=== PATIENT | male | born 1940 | race Caucasian/White ===

== ENCOUNTER 2020-08-13 10:43 | Outpatient (REF) | payer MEDICARE, SELFPAY ==
[2020-08-13 13:56] LABS: MANUAL DIFF FLAG NO
[2020-08-13 14:02] LABS: Basophils Absolute Auto 0.1 X10*3/uL (0.0-0.2); Basophils Percent Auto 1.2 % (0-2); Eosinophils Absolute Auto 0.4 X10*3/uL (0.0-0.4); Eosinophils Percent Auto 3.5 % (0-4); Hematocrit 41.3 % (42-52); Hemoglobin 13.2 g/dl (14.0-18.0); Imm Gran Abs Auto 0.03 X10*3/uL (0.00-0.03); Imm Gran Pct Auto 0.3 % (0.0-0.4); Lymphocytes Absolute Auto 1.4 X10*3/uL (1.2-4.9); Lymphocytes Percent Auto 13.6 % (20-40); Mean Corpuscular Volume 87.5 fL (80-98); Mean Platelet Volume 10.7 fL (9.4-12.4); Monocytes Absolute Auto 0.7 X10*3/uL (0.1-1.2); Monocytes Percent Auto 6.7 % (2-11); Neutrophils Absolute Auto 7.9 X10*3/uL (2.0-8.3); Neutrophils Percent Auto 74.7 % (45-73); Platelet Count 429 X10*3/uL (160-400); Red Blood Count 4.72 X10*6/uL (4.60-5.80); Red Cell Distribution Width 14.2 % (11.0-16.0); White Blood Count 10.5 X10*3/uL (4.8-10.8)
[2020-08-13 14:05] LABS: Glucose Urine UA NEG (NEG); Leukocyte Esterase Urine NEG (NEG); Nitrite Urine NEG (NEG); Specific Gravity - Urine 1.015 (1.005-1.025); Urine Blood NEG (NEG); Urine Ketones NEG (NEG); Urine Protein 1+ MG/DL (NEG-TRACE)
[2020-08-13 14:09] LABS: Appearance Urine CLEAR; Color Urine YELLOW
[2020-08-13 14:23] LABS: Granular Casts Urine 0-2 /LPF; Mucus Urine 2+ /LPF; RBC Urine 0 /HPF (0); Squamous Epithelial Cell Urine 1+ /LPF; WBC Urine 0 /HPF (0-4)
[2020-08-13 14:24] LABS: Calcium Oxalate Crystals Urine 1+ /LPF
[2020-08-13 15:05] LABS: Erythrocyte Sedimentation Rate 18 MM/HR (0-15)
[2020-08-13 15:11] LABS: Alanine Aminotransferase 10 U/L (0-40); Albumin Level 4.1 g/dL (3.5-5.0); Alkaline Phosphatase 65 U/L (39-117); Amylase 33 U/L (28-100); Anion Gap 13 (12-20); Aspartate Amino Transferase 14 U/L (5-37); Bilirubin Direct 0.3 mg/dL (0.0-0.5); Bilirubin Total 0.7 mg/dL (0.0-1.0); Blood Urea Nitrogen 9 mg/dL (9-16); C Reactive Protein 0.37 mg/dL (< or = 0.50); Calcium 10.4 mg/dL (8.4-10.2); Carbon Dioxide 28 mmol/L (22-29); Chloride 101 mmol/L (96-108); Estimated Glomerular Filt Rate 48; Glucose Random 107 mg/dL (60-115); Lipase 11 U/L (8-78); Potassium 4.3 mmol/l (3.3-5.1); Sodium 138 mmol/L (135-145); Total Protein 6.6 g/dL (6.5-8.0)
== END 2020-08-13 10:44 | disposition home or self-care (01) ==
LOC: HO.HMGCLDS 10:43
PROVIDERS: PCP Family Medicine; Visit Provider Internal Medicine
DX: R10.9 Unspecified abdominal pain (principal); R11.0 Nausea
CPT/HCPCS: 36415; 80053; 80076; 81001; 81003; 82150; 83690; 85025; 85652; 86140; 87086

== ENCOUNTER 2020-08-15 13:05 | Outpatient (REF) | payer MEDICARE, SELFPAY ==
--- NOTE | 2020-08-15 13:12 | CT_ITS ---
EXAMINATION: CT ABDOMEN AND PELVIS WITH CONTRAST CLINICAL INFORMATION: History of Crohn's disease. Generalized abdominal and epigastric pain. COMPARISON: Previous CT of the abdomen and pelvis August 2019 TECHNIQUE: Multidetector volumetric images were obtained from the superior aspect of the liver through the pubic symphysis following administration 85 mL of Omnipaque 350 intravenous contrast. Sagittal and coronal reformatted images were obtained on the technologist's workstation. Oral contrast: Yes This CT examination was performed using dose optimization techniques as appropriate, variously including the following: *Automated exposure control *Adjustment of mA and/or kV according to patient size (this includes techniques or standardized protocols for targeted exams where dose is matched to indication/reason for exam; i.e. extremities or head) *Use of iterative reconstruction technique DLP: 463 mGy-cm FINDINGS: LUNG BASES: There is a 3 mm left lower lobe nodule that is stable. LIVER, GALLBLADDER, AND BILIARY TREE: The liver is normal in size, shape, and attenuation. No focal hepatic lesion or biliary ductal dilatation is present. The gallbladder has been removed. PANCREAS: Unremarkable. SPLEEN: Unremarkable. ADRENAL GLANDS: Unremarkable. KIDNEYS AND URETERS: The kidneys are normal in size, shape, and attenuation. No hydronephrosis, hydroureter, or calculi seen. No perinephric stranding. BLADDER: Bladder is not optimally distended. The prostate gland is enlarged. Into the base of the bladder. GASTROINTESTINAL TRACT: The small and large bowel are unremarkable. There may be mild wall thickening of the rectum. The appendix is unremarkable. The stomach is unremarkable. ABDOMINAL WALL: There is evidence of atherosclerotic disease. There is calcified plaque seen at the origin of the celiac axis and SMA. LYMPH NODES: Normal. VASCULAR: Unremarkable. PELVIC VISCERA: The prostate gland is enlarged and measures 4.3 x 4.9 cm in AP and transverse dimension. OSSEOUS STRUCTURES: There are degenerative changes at the hip joints. There are mild degenerative changes of the spine. IMPRESSION: Question mild rectal wall thickening. Enlarged prostate gland. Stable small left lower lobe pulmonary nodule.
[2020-08-15] MEDS: iohexoL 350 MG/ML 100 ML INFUS..BTL IV (15:21)
[2020-08-15] MEDS: Barium Sulfate Oral (Mocha) 450 ML ORAL.SUSP 900 ML PO (15:23)
== END 2020-08-15 13:06 | disposition home or self-care (01) ==
LOC: HO.CT 13:05
PROVIDERS: PCP Family Medicine; Visit Provider Internal Medicine
DX: K50.80 Crohn's disease of both small and large intestine without complications (principal); R10.13 Epigastric pain; R10.33 Periumbilical pain
CPT/HCPCS: 74177

== ENCOUNTER → 2020-08-25 11:58 | Outpatient (BNVA) | payer MEDICARE, SELFPAY | PROVIDERS: PCP Family Medicine; Referring Provider Family Medicine; Visit Provider Internal Medicine | DX: I48.0 Paroxysmal atrial fibrillation (principal); I25.10 Atherosclerotic heart disease of native coronary artery without angina pectoris; I10 Essential (primary) hypertension; E78.2 Mixed hyperlipidemia; Z95.1 Presence of aortocoronary bypass graft; Z79.01 Long term (current) use of anticoagulants | CPT/HCPCS: 93005; 99214 ==

== ENCOUNTER 2020-10-10 11:09 | Outpatient (REF) | payer SELFPAY | END 2020-10-10 11:10 | disposition home or self-care (01) | LOC: HO.HAP 11:09 | PROVIDERS: Visit Provider Family Medicine | DX: Z13.89 Encounter for screening for other disorder (principal) | CPT/HCPCS: 92700 ==

== ENCOUNTER → 2020-10-21 10:51 | Outpatient (REF) | payer MEDICARE, SELFPAY ==
--- NOTE | 2020-10-21 10:54 | CA_ITS ---
Transthoracic Echocardiogram Patient (Last, First, Middle): Cirilo Watson C Gender: Male Date of : 1940 Age: 80 Procedure Date: 10/21/2020 Procedure Type: Transthoracic Echocardiogram Location: OP Height: 172.72 cm Weight: 85.28 kg BSA: 1.99 m2 Heart Rate: bpm BP: 146 / 80 mmHg Semiconductor Equipment Technician: Regis MD: Jerry Barboza MD Principal Data Architect: Volodymyr Jimenez MD Symptoms: I48.0 - Paroxysmal atrial fibrillation Study Quality: Good ECG Rhythm: Atrial Fibrillation Conclusions: - 1. Normal LV systolic function 2. Borderline left atrial enlargement 3. Moderate mitral annular calcification with normal cardiac valvular Doppler 4. Normal RV systolic pressure 5. No pericardial effusion Findings Procedure Information Contrast agent, definity, is being given per protocol without apparent complications. Left Ventricle Normal left ventricular size, thickness, and systolic function. The visually estimated ejection fraction is between 60-65%. Diastolic function is indeterminate on the basis of available data. Right Ventricle Normal right ventricular cavity size and systolic function. Atria The left atrium is likely dilated. There is lipomatous hypertrophy of the interatrial septum. There is no evidence of interatrial shunt. The right atrium is normal in size. Aortic Valve There is mild thickening of the aortic valve. There is no aortic valve stenosis. There is no aortic valve regurgitation. Mitral Valve There is mild anterior and posterior mitral leaflet thickening. There is moderate mitral annular calcification. There is trace mitral valve regurgitation. There is no mitral valve stenosis. Pulmonic Valve The pulmonic valve was not well visualized. Tricuspid Valve Likely normal tricuspid valve structure and function. There is trace tricuspid valve regurgitation. The right ventricular systolic pressure is normal. The right ventricular systolic pressure is 22 mmHg. Normal right atrial pressure. There is no evidence of pulmonary hypertension. Great Vessels All visible segments of the aorta are normal in size. The pulmonary artery was not well visualized. Venous The inferior vena cava is normal in size and collapses greater than 50% with inspiration. Pericardium/Pleural There is no evidence of pericardial effusion. Prior Study Comparison No significant change compared to prior study dated: 06/06/2019. Measurements 2D Linear Measurements RVIDd: 3.32 RVIDd Index: 1.67 IVSd: 0.90 0.6-0.9/0.6-1.0 cm LVIDd: 4.82 3.9-5.3/4.2-5.9 cm LVIDd Index: 2.42 2.4-3.2/2.2-3.1 cm/m2 LVIDs: 3.58 2.0-3.6 cm LVPWd: 1.25 0.7-1.1 cm Ao Root: 3.10 2.1-3.5 cm LA Diam: 4.20 2.7-3.8/3.0-4.0 cm LAIDs Index: 2.11 1.5-2.3 cm/m2 LV Mass: 235.69 67-162/88-224 g LV Mass Index: 118.44 43-95/49-115 g/m2 LVOT Diam: 2.30 3.0+(-)1.3 cm 2D Systolic Function EF 4C: 66.40 >55% EF 2C: 65.90 >55% EF BiP: 66.00 >55% Aortic Valve AoV Pk Bhavesh: 1.38 AoV Mn Bhavesh: 0.89 AoV VTI: 0.26 AoV Pk Grad: 8.00 Aov Mn Grad: 4.00 ZIGGY Cont.VTI: 3.37 LVOT LVOT Pk Bhavesh: 1.01 LVOT Mn Bhavesh: 0.70 LVOT VTI: 0.21 LVOT Pk Grad: 4.00 LVOT Mn Grad: 2.00 LVOT Diam: 2.30 LVOT Area: 4.15 Tricuspid Valve TR Pk Bhavesh: 2.19 TR Pk Grad: 19.00 RA Press: 3.00 RVSP: 22.00 Great Vessels Aorta Ao Root-2D: 3.10 2.0-3.7 cm Ao Asc: 3.30 2.1-3.4 cm Ao Arch: 3.40 Updated in Other Vendor System with Status of Final Volodymyr Jimenez MD electronically signed on 10/23/2020 9:19:18 AM with status of Final
--- NOTE | 2020-10-21 10:54 | ECG_ITS ---
Hook-up date: 2020-10-21 12:08:00 Duration: 23:54:00 Test Indications: I48.0 - Paroxysmal atrial fibri Medications: PAF 66835 QRS complexes 156 Ventricular ectopics which represent <1 % of total QRS comp. * Supraventricular ectopics which represent % of total QRS comp. * Paced QRS complexs which represent % of total QRS comp. VENTRICULAR ECTOPY 154 Isolated 0 Bigeminal Cycles 1 Couplets 0 Runs 0 Beats in Runs * Beats LONGEST at * BPM at :: -- * Beats FASTEST at * BPM at :: -- SUPRAVENTRICULAR ECTOPY * Isolated * Couplets * Runs * Beats in Runs * Beats LONGEST at * BPM at :: -- * Beats FASTEST at * BPM at :: -- HEART RATES 43 MIN at 23:32:21 2020-10-21 69 AVG 141 MAX at 13:30:05 2020-10-21 LONGEST RR 2.4720 secs at 00:56:45 2020-10-22 S-T LEVELS Channel 1 - 128 mm at 12:08:00 2020-10-21 - 128 mm at 12:08:00 2020-10-21 Channel 2 - 128 mm at 12:08:00 2020-10-21 - 128 mm at 12:08:00 2020-10-21 Channel 3 - 128 mm at 03:12:71 -- - 128 mm at 03:12:71 Underlying rhythm is atrial fibrillation; Average ventricular rate 69/min; range 43-141/min; About 2% of the rates >100/min; 18% <60/min; Rare PVCs; Patient did not return diary Referred By: Rohith Uribe Overread By: ROHITH URIBE
== END ==
LOC: HO.CARD 10:51
PROVIDERS: Visit Provider Internal Medicine
DX: I48.0 Paroxysmal atrial fibrillation (principal)
CPT/HCPCS: 93225; 93226; 93306; Q9957

== ENCOUNTER → 2020-11-13 10:47 | Outpatient (BNVA) | payer MEDICARE, SELFPAY | PROVIDERS: PCP Family Medicine; Visit Provider Internal Medicine | DX: I48.0 Paroxysmal atrial fibrillation (principal); I25.10 Atherosclerotic heart disease of native coronary artery without angina pectoris; I10 Essential (primary) hypertension; E78.2 Mixed hyperlipidemia; Z95.1 Presence of aortocoronary bypass graft | CPT/HCPCS: 99212 ==

== ENCOUNTER 2021-04-06 12:52 | Outpatient (REF) | payer SELFPAY ==
--- NOTE | 2021-04-06 13:11 | MHC.AU.P13 ---
Hearing Instrument Maintenance 04/06/2021 Right Ear: Smoke Jumper Supervisor: Phonak Model: Bolero B 50-SP Serial Number: [id number] Repair Warranty: 01/15/2023 Service Plan: Repair and L&D Battery Size: 13 Color: Silver Carter Tubing: Tube Lock Type of Mold: Microsonic Skeleton Type of Wax Guard: Dispensed By: [facility] Date of Fittin11/06/2019 Left Ear: Smoke Jumper Supervisor: Phonak Model: Bolero B 50-SP Serial Number: [id number] Repair Warranty: 01/15/2023 Service Plan: Repair and L&D Battery Size: 13 Color: Silver Carter Tubing: Tube Lock Type of Mold: Microsonic Skeleton Dispensed By: [facility] Date of Fittin11/06/2019 Follow-Up Summary: SUNG Maint - Hearing aids cleaned and tubings changed - both amplifying clearly. Recommendations: Recommendations: Hearing instrument follow-up or maintenance as needed. Signature: Provider: JERRY Pierson-
== END 2021-04-06 12:53 | disposition home or self-care (01) ==
LOC: HO.HAP 12:52
PROVIDERS: Visit Provider Family Medicine
DX: Z13.89 Encounter for screening for other disorder (principal)

== ENCOUNTER 2021-04-18 19:39 | Emergency (ER) | payer MEDICARE, SELFPAY ==
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
--- NOTE | ~2021-04-18 | XR_ITS ---
EXAMINATION: XR TIBIA AND FIBULA, LEFT CLINICAL INFORMATION: Trauma COMPARISON: None TECHNIQUE: AP and lateral views of the left tibia and fibula were obtained. FINDINGS: Normal alignment. No fracture. Diffuse vascular calcifications. Prominent heel spur and dorsal spurring of the distal talus. XR/XR tibia fibula LT 2V IMPRESSION: No fracture.
[2021-04-18 20:01] VITALS: BP 188/95; PULSE 73; RESP 16; TEMP 37.6; O2SAT 97; BMI 30.2
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
[2021-04-19] MEDS: cephALEXin 500 MG CAPSULE PO (00:12)
[2021-04-19 00:34] VITALS: BP 141/86; PULSE 76; RESP 16; TEMP 37.2; O2SAT 98
== END 2021-04-19 00:35 | disposition home or self-care (01) ==
PROVIDERS: Emergency Provider Internal Medicine; PCP Family Medicine
DX: S80.12XA Contusion of left lower leg, initial encounter (principal); M79.605 Pain in left leg; I10 Essential (primary) hypertension; I48.0 Paroxysmal atrial fibrillation; I25.10 Atherosclerotic heart disease of native coronary artery without angina pectoris; Z79.01 Long term (current) use of anticoagulants; Z95.1 Presence of aortocoronary bypass graft; W21.11XA Struck by baseball bat, initial encounter; Y93.64 Activity, baseball; Y92.9 Unspecified place or not applicable; Y99.9 Unspecified external cause status
CPT/HCPCS: 73590; 93971; 99283; 99284

== ENCOUNTER → 2021-06-30 10:52 | Outpatient (BNVA) | payer MEDICARE, SELFPAY | PROVIDERS: PCP Family Medicine; Referring Provider Family Medicine; Visit Provider Internal Medicine | DX: I25.10 Atherosclerotic heart disease of native coronary artery without angina pectoris (principal); I48.19 Other persistent atrial fibrillation; I10 Essential (primary) hypertension; E78.2 Mixed hyperlipidemia; Z95.1 Presence of aortocoronary bypass graft | CPT/HCPCS: 93005; 99212 ==

== ENCOUNTER 2021-07-28 08:23 | Outpatient (REF) | payer MEDICARE, SELFPAY ==
--- NOTE | 2021-07-28 08:58 | MHC.AU.AHA ---
Adult Audiological Evaluation Date of Visit: 07/28/21 Reason for Appointment: Audiological re-evaluation to monitor the status of Mr. Watson's hearing loss. He has a known bilateral, asymmetrical, sensorineural hearing loss with the left ear hearing worse than the right and uses hearing aids binaurally. He feels his hearing is gradually decreasing. Mr. Watson denies any significant changes to his medical history since his last visit. Previous Hearing Test Results: [facility] [place], [place]25/[place]- Mild sloping to severe sensorineural hearing loss in the right ear. Mild sloping to profound sensorineural hearing loss in the left ear. 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 Date of Fittin11/06/2019 Hearing Instrument History- Left Ear: Glove Operator: [employer] Model: [employer] B 50-SP Serial Number: [id number] Battery Size: 13 Warranty: 01/15/2023 Loss and Damage Warranty: 01/15/2023 Dispensed By: [facility] Date of Fittin11/06/2019 Otoscopy: Right Ear: Unremarkable Left Ear: Unremarkable Tympanometry: Tympanometry performed due to: History of middle ear dysfunction Right Ear: Reduced Middle Ear Compliance (Type As) Left Ear: Reduced Middle Ear Compliance (Type As) Hearing Evaluation: Transducer(s) Used: Circumaural Headphones, Bone Conduction Method: Conventional Audiometry Stimuli Used: Pure Tones Right Ear: Description of Hearing: Mild sloping to severe sensorineural hearing loss from 250-8000 Hz. Left Ear: Description of Hearing: Mild sloping to profound sensorineural hearing loss from 250-8000 Hz. Hearing in the left ear is 10-35+ dBHL worse than the right from 4774-5121 Hz. Speech Recognition Threshold (SRT): Method Used: Monitored Live Voice Stimuli Used: Spondee Words Right Ear: 55 dBHL Left Ear: 60 dBHL Word Discrimination: Method: Recorded Lists Word Lists Used: NU-6 Right Ear: 56% at 90 dBHL Left Ear: 16% at 95 dBHL Comparison: Compared to the most recent evaluation: Hearing is stable. Recommendations: Audiological re-evaluation in one year. Hearing aid maintenance performed today. Hearing aid(s) reprogrammed with updated test results. Ordering new earmolds for his hearing aids, as there is a rip in one of his current ones. Diagnosis: Primary Diagnosis: H90.3 Bilateral Sensorineural Hearing Loss Services Performed: Comprehensive Audiological Evaluation (CPT 54717) Tympanometry (CPT 56090) Signature: Provider: Carmela Mina, CCC-A
== END 2021-07-28 08:24 | disposition home or self-care (01) ==
LOC: HO.SH 08:23
PROVIDERS: Visit Provider Family Medicine
DX: H90.3 Sensorineural hearing loss, bilateral (principal)
CPT/HCPCS: 92557; 92567

== ENCOUNTER 2021-08-28 14:35 | Outpatient (REF) | payer SELFPAY | END 2021-08-28 14:36 | disposition home or self-care (01) | LOC: HO.HAP 14:35 | PROVIDERS: Visit Provider Family Medicine | DX: Z46.1 Encounter for fitting and adjustment of hearing aid (principal); H90.3 Sensorineural hearing loss, bilateral | CPT/HCPCS: V5264 ==

== ENCOUNTER 2021-09-01 12:21 | Outpatient (REF) | payer SELFPAY ==
--- NOTE | 2021-09-01 13:13 | MHC.AU.HFU ---
Hearing Instrument Follow-Up- Binaural Date of Visit: 09/01/21 Right Ear: Cap Coverer: Phonak Model: [employer].ero B50-SP Serial Number: [id number] Repair Warranty: 01/15/2023 Loss and Damage Warranty: 01/15/2023 Service Plan: Repair and L&D Battery Size: 13 Color: Silver Carter Tubing: Tube Lock Type of Mold: Microsonic Skeleton Type of Wax Guard: Dispensed By: [facility] Date of Fittin11/06/2019 Left Ear: Cap Coverer: Phonak Model: Bolero B50-SP Serial Number: [id number] Repair Warranty: 01/15/2023 Loss and Damage Warranty: 01/15/2023 Service Plan: Repair and L&D Battery Size: 13 Color: Silver Carter Tubing: Tube Lock Type of Mold: Microsonic Skeleton Type of Wax Guard: Dispensed By: [facility] Date of Fittin11/06/2019 Follow-Up Summary: Patient reports since being fit with the new earmolds last week, the left aid seem louder and a kind of extra sound with high pitched sounds. Turned Sound Recover on binaurally and then decreased left aid only at 6784-3382 Hz 4 dB. Patient reports improvement while in office. Will try and schedule another appointment if problem continues. Recommendations: Hearing instrument follow-up or maintenance as needed. Please contact our clinic with any questions or concerns. Diagnosis Code(s): Primary Diagnosis: H90.3 Bilateral Sensorineural Hearing Loss Services Performed: SUNG Non-Quantity Charges: HANC: NonBillable Event Signature: Provider: Carmela Moses, CHACE-A
== END 2021-09-01 12:22 | disposition home or self-care (01) ==
LOC: HO.HAP 12:21
PROVIDERS: Visit Provider Family Medicine
DX: Z13.89 Encounter for screening for other disorder (principal)

== ENCOUNTER 2021-09-14 12:57 | Outpatient (REF) | payer SELFPAY | END 2021-09-14 12:58 | disposition home or self-care (01) | LOC: HO.HAP 12:57 | PROVIDERS: Visit Provider Family Medicine | DX: Z13.89 Encounter for screening for other disorder (principal) ==

== ENCOUNTER → 2021-12-31 10:27 | Outpatient (BNVA) | payer MEDICARE, SELFPAY | PROVIDERS: Visit Provider Internal Medicine | DX: I48.19 Other persistent atrial fibrillation (principal); I25.10 Atherosclerotic heart disease of native coronary artery without angina pectoris; I10 Essential (primary) hypertension; E78.2 Mixed hyperlipidemia; E66.01 Morbid (severe) obesity due to excess calories; Z95.1 Presence of aortocoronary bypass graft; Z68.32 Body mass index [BMI] 32.0-32.9, adult | CPT/HCPCS: 93005; 99212 ==

== ENCOUNTER 2022-01-20 13:26 | Outpatient (REF) | payer SELFPAY | END 2022-01-20 13:27 | disposition home or self-care (01) | LOC: HO.HAP 13:26 | DX: Z13.89 Encounter for screening for other disorder (principal) ==

== ENCOUNTER 2022-02-12 13:52 | Emergency (ER) | payer MEDICARE, SELFPAY ==
--- NOTE | ~2022-02-12 | XR_ITS ---
EXAMINATION: XR TIBIA AND FIBULA, RIGHT CLINICAL INFORMATION: Trauma. COMPARISON: None TECHNIQUE: AP and lateral views of the right tibia and fibula were obtained. FINDINGS: No fracture. No dislocation. Tibia and fibula are normal. Small focal area of soft tissue swelling at anterior mid hanks. Soft tissue vascular calcifications in the calf. Surgical clips at the medial side of the knee. There are soft tissue calcifications at the medial soft tissues of the knee joint XR/XR tibia fibula RT 2V IMPRESSION: No acute osseous abnormality.
--- NOTE | ~2022-02-12 | US_ITS ---
EXAMINATION: US VENOUS ULTRASOUND WITH DOPPLER LOWER EXTREMITY, RIGHT CLINICAL INFORMATION: Pain COMPARISON: Correlation with ultrasound left lower extremity 04/18/2021 TECHNIQUE: Ultrasound of the deep veins is performed from the hip to the calf with compression sonography and color and pulse Doppler assessment. Spectral analysis with color-flow imaging is performed. FINDINGS: There is normal venous compression and respiratory variation and augmented flow. The visualized common femoral vein, superficial femoral vein, profunda femoral vein, popliteal vein, and the trifurcation region shows no evidence of deep venous thrombosis. There is no significant popliteal fossa cyst. There is clinical history of trauma. In the lateral mid hanks in the subcutaneous tissues, is a complex collection in the subcutaneous tissues measuring 1.9 x 4.1 x 1.5 cm. If the patient's symptoms persist, followup ultrasound in 5 days 7 days might be of value to exclude proximal propagation from a non-visualized calf vein. US/US venous duplex LE RT IMPRESSION: No DVT demonstrated in the right lower extremity. Complex subcutaneous fluid collection in the lateral midshin in the area of clinical concern, likely reflecting a hematoma.
[2022-02-12 14:56] VITALS: BP 177/79; PULSE 67; RESP 16; TEMP 36.3; O2SAT 98; BMI 31.1
--- NOTE | 2022-02-12 16:45 | ED_ITS ---
HPI - Extremity Injury (Lower) General Chief Complaint: Extremity Injury, Lower Stated Complaint: R leg inj Time Seen by Provider: 02/12/22 16:44 Source: patient Mode of arrival: ambulatory Limitations: no limitations History of Present Illness HPI Narrative: 82-year-old male who is anticoagulated presents for injury to his right hanks. Five days ago he was hit with a softball in the middle of his right hanks. There is no pain when he is walking, but it throbs when he is resting. Related Data Home Medications Medication Instructions Recorded Confirmed atorvastatin 40 mg tablet 40 mg PO tab 08/25/20 12/31/21 mesalamine 500 mg 1,000 mg PO BID 08/25/20 12/31/21 capsule,controlled release (Pentasa) risankizumab-rzaa (Skyrizi) See Rx Instructions SUBCUT PER PKG 11/13/20 12/31/21 DIR amlodipine 5 mg tablet 5 mg PO DAILY 12/31/21 12/31/21 Previous Rx's Medication Instructions Recorded metoprolol succinate 25 mg 25 mg PO DAILY #90 tab 09/14/21 tablet,extended release 24 hr apixaban 5 mg tablet (Eliquis) 5 mg PO BID #60 tab 10/02/21 cephalexin 500 mg capsule 500 mg PO QID 7 Days #28 cap 02/12/22 Allergies Allergy/AdvReac Type Severity Reaction Status Date / Time No Known Allergies Allergy Mild NONE Verified 12/31/21 10:45 Review of Systems Constitutional: Constitutional: Denies body ache(s), Denies chills, Denies fatigue, Denies fever(s), Denies headache(s), Denies malaise and Denies weakness Eyes: Eyes: Denies diplopia ENT: Denies vertigo, Denies dizziness, Denies headache(s) and Denies throat swelling Cardiovascular: Cardiovascular: Denies chest pain, Denies syncope, Denies leg edema, Denies lightheadedness, Denies Loss of Consciousness, Denies palpitations and Denies dyspnea Respiratory: Respiratory: Denies chest congestion, Denies cough and Denies dyspnea Gastrointestinal: Gastrointestinal: Denies abdominal pain, Denies hematochezia, Denies constipation, Denies diarrhea and Denies vomiting Musculoskeletal: Comments: pain and swelling anterior right hanks Neurologic: Denies confusion, Denies vertigo, Denies dizziness, Denies syncope, Denies headache(s) and Denies weakness Psychiatric: Psychiatric: Denies anxiety, Denies confusion and Denies depression Endocrine: Endocrine: Denies fatigue and Denies palpitations Allergic/Immunologic: Allergic/Immunologic: Denies throat swelling PMFSH Past Medical History Medical History Atherosclerotic cardiovascular disease Essential hypertension Mixed hyperlipidemia Surgical History Status post aorto-coronary artery bypass graft Family History Family History Father Cancer Mother Cancer Social History Social History Patient Tobacco Use Status: Never used Tobacco Advance Directives: No Advance Directives Information Provided: No Physical Exam Vital Signs: Vital Signs: Last Vital Signs Temp 97.4 F 02/12/22 14:56 Pulse 67 02/12/22 14:56 Resp 16 02/12/22 14:56 BP 177/79 H 02/12/22 14:56 Pulse Ox 98 02/12/22 14:56 BMI result Body Mass Index 31.1 Const: General: No confusion Nutritional Appearance: well nourished Orientation/consciousness: No confusion Limitations: no limitations Eyes: Conjunctivae: conjunctivae normal Pupils: Equal, round and reactive pupils present EOM: EOMs intact bilaterally Neck: Neck: Yes full ROM, Yes no lymphadenopathy and Yes supple Resp: Effort & Inspection: normal respiratory effort and able to speak in complete sentences Auscultation: clear to auscultation bilaterally, no crackles, no rales, no rhonchi and no wheezes Cardio: Rate: regular rate Rhythm: regular rhythm Heart sounds: S1 normal heart sound present and S2 normal heart sound present GI: Inspection: Yes normal to inspection Palpation (GI): Soft to palpation, nontender, no guarding and not rigid Percussion: Yes normal to percussion Auscultation: normal bowel sounds Skin: Other: hematoma with surrounding erythema right anterior hanks Neuro: General: No confusion Cranial nerves: Yes Equal, round and reactive pupils present Extrem: Right lower extremity: full ROM, normal capillary refill and lower leg Details: tenderness and localized swelling; Negative for no palpable cords, edema noted, no crepitus and no unusual warmth; No no cyanosis and no edema Psych: Appearance: grossly normal Affect: normal affect Attitude: cooperative Thought process: Normal thought process present Course Course Course Narrative: 79-year-old with right anterior hanks hematoma with possible surrounding cellulitis. Ultrasound and x-ray are negative. Patient's coags are not drastically out of range. INR 1.4. Patient can walk on his right leg without p ain. Applied compression dressing, prescribe cephalexin, have patient follow-up with primary care provider. FINDINGS: No fracture. No dislocation. Tibia and fibula are normal. Small focal area of soft tissue swelling at anterior mid hanks. Soft tissue vascular calcifications in the calf. Surgical clips at the medial side of the knee. There are soft tissue calcifications at the medial soft tissues of the knee joint XR/XR tibia fibula RT 2V IMPRESSION: No acute osseous abnormality. US/US venous duplex LE RT IMPRESSION: No DVT demonstrated in the right lower extremity. Complex subcutaneous fluid collection in the lateral midshin in the area of clinical concern, likely reflecting a hematoma. MDM - Extremity Injury (Lower) Lab Data Labs: Lab Results 02/12/22 Range/Units 19:05 PT 15.5 H (9.9-13.0) SEC INR 1.4 H (0.9-1.1) APTT 41.3 H (24.1-38.0) SEC Discharge Plan Discharge Clinical Impression: Hematoma, Cellulitis Patient Disposition: Home, Self-Care Instructions: Cellulitis (ED), Hematoma (ED) Additional Instructions: Please fill prescription for antibiotic and take it starting tonight. Please keep the pressure dressing on until you are seen by your primary care provider. Please call your primary care provider for follow-up appointment. I will call you when your INR results and give you that information so you can take it to her primary care. Please return for any new or concerning symptoms. Prescriptions: New cephalexin 500 mg capsule 500 mg PO QID 7 Days Qty: 28 0RF No Action metoprolol succinate 25 mg tablet extended release 24 hr 25 mg PO DAILY Qty: 90 2RF Eliquis 5 mg tablet 5 mg PO BID Qty: 60 5RF atorvastatin 40 mg tablet 40 mg PO 0RF Pentasa 500 mg capsule, extended release 1,000 mg PO BID 0RF amlodipine 5 mg tablet 5 mg PO DAILY 0RF Skyrizi 150mg/1.66mL(75 mg/0.83 mL x2) syringe kit See Rx Instructions subcut PER PKG DIR 0RF Rx Instructions: subcut PER PKG DIR Interventions: ED Discharge Assessment Last Done: 02/12/22 19:26 Discharge Date/Time: 02/12/22 19:30
[2022-02-12 19:20] LABS: INTERNATIONAL NORM RATIO 1.4 (0.9-1.1); Prothrombin Time 15.5 SEC (9.9-13.0)
[2022-02-12 19:22] LABS: Partial Thromboplastin Time 41.3 SEC (24.1-38.0)
== END 2022-02-12 19:30 | disposition home or self-care (01) ==
PROVIDERS: Physician Assistant; Emergency Provider Emergency Medicine; PCP Family Medicine
DX: L03.115 Cellulitis of right lower limb (principal); R60.0 Localized edema; S80.01XA Contusion of right knee, initial encounter; Y29.XXXA Contact with blunt object, undetermined intent, initial encounter; Y93.9 Activity, unspecified; Y92.9 Unspecified place or not applicable; Y99.8 Other external cause status; Z79.899 Other long term (current) drug therapy
CPT/HCPCS: 36415; 73590; 85610; 85730; 93971; 99283; 99284

== ENCOUNTER 2022-06-16 13:53 | Outpatient (REF) | payer SELFPAY | END 2022-06-16 13:54 | disposition home or self-care (01) | LOC: HO.HAP 13:53 | PROVIDERS: Visit Provider Family Medicine | DX: Z46.1 Encounter for fitting and adjustment of hearing aid (principal); H90.3 Sensorineural hearing loss, bilateral | CPT/HCPCS: 99499 ==

== ENCOUNTER → 2022-07-08 11:08 | Outpatient (BNVA) | payer MEDICARE, SELFPAY | PROVIDERS: PCP Family Medicine; Referring Provider Family Medicine; Visit Provider Internal Medicine | DX: I48.19 Other persistent atrial fibrillation (principal); I25.10 Atherosclerotic heart disease of native coronary artery without angina pectoris; I10 Essential (primary) hypertension; E78.2 Mixed hyperlipidemia; E66.01 Morbid (severe) obesity due to excess calories; Z68.32 Body mass index [BMI] 32.0-32.9, adult; Z95.1 Presence of aortocoronary bypass graft | CPT/HCPCS: 99212 ==

== ENCOUNTER 2022-07-15 00:35 | Observation (INO) | payer MEDICARE, SELFPAY ==
--- NOTE | ~2022-07-15 | CT_ITS ---
EXAMINATION: CT FEMUR, LEFT WITH CONTRAST CLINICAL INFORMATION: Increased swelling. On Eliquis. Question compartment syndrome. COMPARISON: None TECHNIQUE: Multidetector volumetric imaging of the left femur performed after administration of 85 mL of Omnipaque 350 IV contrast. Coronal and sagittal reformatted images are obtained and reviewed. This CT examination was performed using dose optimization techniques as appropriate, variously including the following: *Automated exposure control *Adjustment of mA and/or kV according to patient size (this includes techniques or standardized protocols for targeted exams where dose is matched to indication/reason for exam; i.e. extremities or head) *Use of iterative reconstruction technique DLP: 385 mGy-cm FINDINGS: There is superficial edema in the subcutaneous fat circumferentially at the thigh. No fluid collection. There is mild stranding along the deep fascial planes adjacent to the musculature. Along the inner margin of the sartorius there is the appearance of a hematoma. A blush of contrast is noted, which suggests active hemorrhage. The hematoma measures approximately 5 x 3.5 x 7.8 cm. Scattered vascular calcifications. The vasculature is patent. The visualized intrapelvic structures show no acute abnormality. No lymphadenopathy. No acute osseous abnormality. Appropriate alignment at the knee. Small amount of joint fluid. CT/CT femur LT w IV con IMPRESSION: Intramuscular hematoma at the posterior thigh in the region of the sartorius. There appears to be active hemorrhage into the hematoma. Additional edema along the deep fascial planes and superficially. This critical result was discussed with Juan F Contreras MD by telephone at 07/15/2022 3:38 AM and it was ascertained that the content and urgency of the report was understood at the time of direct communication.
--- NOTE | 2022-07-15 00:50 | ED_ITS ---
HPI - Extremity Problem General Chief complaint: Extremity Injury, Lower Stated complaint: LEFT LEG PAIN, UNABLE TO BEAR WEIGHT,NO INJURY Time Seen by Provider: 07/15/22 00:49 Source: patient Mode of arrival: EMS Limitations: no limitations History of Present Illness HPI Narrative: Patient morbidly obese with history of atrial fibrillation hyperlipidemia hypertension coronary disease status post CABG on Eliquis comes here for pain in the left leg no history of injury, swelling is mostly localized to left thigh area with ecchymosis patient denies any trauma no shortness of breath Related Data Home Medications Medication Instructions Recorded Confirmed atorvastatin 40 mg tablet 40 mg PO 08/25/20 07/08/22 mesalamine 500 mg capsule,extended 1,000 mg PO BID 08/25/20 07/08/22 release (Pentasa) risankizumab-rzaa 150 mg/1.66 mL See Rx Instructions subcut PER PKG 11/13/20 07/08/22 (75 mg/0.83mL x 2) subcut syringe DIR kit (Rennyidalmisizi) Previous Rx's Medication Instructions Recorded apixaban 5 mg tablet (Eliquis) 5 mg PO BID #60 tabs 04/02/22 metoprolol succinate 25 mg 25 mg PO DAILY #90 tabs 06/10/22 tablet,extended release 24 hr amlodipine 10 mg tablet 10 mg PO DAILY #90 tabs 07/08/22 Allergies Allergy/AdvReac Type Severity Reaction Status Date / Time No Known Allergies Allergy Mild NONE Verified 07/08/22 11:16 Review of Systems Review of Systems: Yes all other systems are reviewed and are negative PMFSH Past Medical History Medical History Atherosclerotic cardiovascular disease Essential hypertension Mixed hyperlipidemia Surgical History Status post aorto-coronary artery bypass graft Family History Family History Father Cancer Mother Cancer Social History Social History Alcohol intake: never Patient Tobacco Use Status: Former Tobacco user Smoked in Last 30 Days: No Use of substances other than those prescribed or required for medical reasons: No Advance Directives: No Advance Directives Information Provided: Yes Physical Exam Vital Signs: Vital Signs: Last Vital Signs Pulse 77 07/15/22 05:13 Resp 18 07/15/22 05:13 BP 149/75 H 07/15/22 05:13 Pulse Ox 94 07/15/22 05:13 O2 Del Method 07/15/22 05:13 BMI result Body Mass Index 32.1 Appearance: Alert. Oriented X3. No acute distress. ENT: Pharynx normal. Oral Mucosa moist Neck: Normal inspection. Neck supple. CVS: Normal heart rate and rhythm. Pulses normal. Respiratory: No respiratory distress. Equal air entry bilateral, no wheezing/rales/rhonchi Abdomen: Soft and nontender. Bowel sounds are present, no mass palpable, no CVA tenderness Skin: Skin warm and dry. Normal skin color. Normal skin turgor. Extremities: Left thigh significant swelling with ecchymosis neurovascular in tact no paresthesias popliteal and dorsalis pedis palpable Neuro: Oriented X 3. No motor deficit. No sensory deficit.No cerebellar signs , cranial nerves II-XII intact MDM - Extremity (Nontraumatic) MDM Narrative Medical decision making narrative: 6 am Patient on Eliquis with atraumatic hematoma of the left thigh area with slight amount of fresh blood at this time there is no signs of compartment syndrome patient does have significant swelling no hyper paresthesia, neurovascular intact will admit patient for observation case discussed with ortho AIDAN Pizano will follow the patient Lab Data Attestation: I reviewed the patient's lab results. Result diagrams: 07/15/22 01:09 07/15/22 01:09 Labs: Lab Results 07/15/22 07/15/22 07/15/22 Range/Units 01:09 01:09 01:09 WBC 9.0 (4.8-10.8) X10*3/uL RBC 4.16 L (4.60-5.80) X10*6/uL Hgb 12.3 L (14.0-18.0) g/dl Hct 36.9 L (42.0-52.0) % MCV 88.7 (80.0-98.0) fL MCH 29.6 (27.0-33.0) pg MCHC 33.3 (31.0-36.0) g/dl RDW 13.3 (11.0-16.0) % Plt Count 190 (160-400) X10*3/uL MPV 11.2 (9.4-12.4) fL Immature Gran % (Auto) 0.8 H (0.0-0.4) % Neut % (Auto) 77.4 H (45-73) % Lymph % (Auto) 10.5 L (20-40) % [place] % (Auto) 6.1 (2-11) % Eos % (Auto) 4.4 H (0-4) % Baso % (Auto) 0.8 (0-2) % Lymph # (Auto) 0.9 L (1.2-4.9) X10*3/uL [place] # (Auto) 0.6 (0.1-1.2) X10*3/uL Eos # (Auto) 0.4 (0.0-0.4) X10*3/uL Baso # (Auto) 0.1 (0.0-0.2) X10*3/uL Abs Immat Gran (auto) 0.07 H (0.00-0.03) X10*3/uL Absolute Neuts (auto) 6.9 (2.0-8.3) x10*3/uL Absolute Nucleated RBC 0.000 (0.0-0.012) X10*3/uL Nucleated RBC % (auto) 0.0 (0.0-0.2) /100WBC PT 13.4 H (10.0-13.1) SEC INR 1.2 H (0.9-1.1) Sodium (135-145) mmol/L Potassium (3.3-5.1) mmol/L Chloride (96-108) mmol/L Carbon Dioxide (22-29) mmol/L Anion Gap (12-20) BUN (9-16) mg/dL Creatinine (0.5-1.4) mg/dL Estim Creat Clear Calc Estimated GFR Random Glucose (60-115) mg/dL Lactic Acid (0.5-2.0) mmol/L Calcium (8.4-10.2) mg/dL Total Bilirubin (0.0-1.0) mg/dL AST (5-37) U/L ALT (0-40) U/L Alkaline Phosphatase (39-117) U/L Total Protein (6.5-8.0) g/dL Albumin (3.5-5.0) g/dL COVID-19 (JUANCARLOS) Negative (Negative) COVID-19 Clin Com See Note 07/15/22 07/15/22 Range/Units 01:09 01:09 WBC (4.8-10.8) X10*3/uL RBC (4.60-5.80) X10*6/uL Hgb (14.0-18.0) g/dl Hct (42.0-52.0) % MCV (80.0-98.0) fL MCH (27.0-33.0) pg MCHC (31.0-36.0) g/dl RDW (11.0-16.0) % Plt Count (160-400) X10*3/uL MPV (9.4-12.4) fL Immature Gran % (Auto) (0.0-0.4) % Neut % (Auto) (45-73) % Lymph % (Auto) (20-40) % [place] % (Auto) (2-11) % Eos % (Auto) (0-4) % Baso % (Auto) (0-2) % Lymph # (Auto) (1.2-4.9) X10*3/uL [place] # (Auto) (0.1-1.2) X10*3/uL Eos # (Auto) (0.0-0.4) X10*3/uL Baso # (Auto) (0.0-0.2) X10*3/uL Abs Immat Gran (auto) (0.00-0.03) X10*3/uL Absolute Neuts (auto) (2.0-8.3) x10*3/uL Absolute Nucleated RBC (0.0-0.012) X10*3/uL Nucleated RBC % (auto) (0.0-0.2) /100WBC PT (10.0-13.1) SEC INR (0.9-1.1) Sodium 140 (135-145) mmol/L Potassium 3.8 (3.3-5.1) mmol/L Chloride 103 (96-108) mmol/L Carbon Dioxide 26 (22-29) mmol/L Anion Gap 15 (12-20) BUN 17 H (9-16) mg/dL Creatinine 1.14 (0.5-1.4) mg/dL Estim Creat Clear Calc 54.1 Estimated GFR > 60 Random Glucose 137 H (60-115) mg/dL Lactic Acid 1.4 (0.5-2.0) mmol/L Calcium 9.5 D (8.4-10.2) mg/dL Total Bilirubin 0.3 (0.0-1.0) mg/dL AST 20 D (5-37) U/L ALT 16 (0-40) U/L Alkaline Phosphatase 78 (39-117) U/L Total Protein 6.6 (6.5-8.0) g/dL Albumin 4.1 (3.5-5.0) g/dL COVID-19 (JUANCARLOS) (Negative) COVID-19 Clin Com Discharge Plan Discharge Clinical Impression: Hematoma of left lower extremity Patient Disposition: Admitted As Inpatient
[2022-07-15 00:52] VITALS: BP 160/60; PULSE 80; RESP 18; O2SAT 97; O2SAT 98; BMI 32.1
--- NOTE | 2022-07-15 00:54 | ECG_ITS ---
Test Reason : AT FIB Blood Pressure : / mmHG Vent. Rate : 077 BPM Atrial Rate : 000 BPM P-R Int : 000 ms QRS Dur : 080 ms QT Int : 414 ms P-R-T Axes : 000 -04 040 degrees QTc Int : 468 ms Atrial fibrillation Nonspecific ST abnormality Abnormal ECG When compared with ECG of 29-JUL-2020 20:35, No significant change was found Referred By: Juan F Contreras Electronically Signed By:BIBI FLOWERS
[2022-07-15] MEDS: Morphine Sulfate 4 MG/ML CARTRIDGE IVPUSH (01:12)
[2022-07-15 01:13] LABS: MANUAL DIFF FLAG NO
[2022-07-15 01:17] LABS: Basophils Absolute Auto 0.1 X10*3/uL (0.0-0.2); Basophils Percent Auto 0.8 % (0-2); Eosinophils Absolute Auto 0.4 X10*3/uL (0.0-0.4); Eosinophils Percent Auto 4.4 % (0-4); Hematocrit 36.9 % (42.0-52.0); Hemoglobin 12.3 g/dl (14.0-18.0); Imm Gran Abs Auto 0.07 X10*3/uL (0.00-0.03); Imm Gran Pct Auto 0.8 % (0.0-0.4); Lymphocytes Absolute Auto 0.9 X10*3/uL (1.2-4.9); Lymphocytes Percent Auto 10.5 % (20-40); Mean Corpuscular HGB Conc 33.3 g/dl (31.0-36.0); Mean Corpuscular Hemoglobin 29.6 pg (27.0-33.0); Mean Corpuscular Volume 88.7 fL (80.0-98.0); Mean Platelet Volume 11.2 fL (9.4-12.4); Monocytes Absolute Auto 0.6 X10*3/uL (0.1-1.2); Monocytes Percent Auto 6.1 % (2-11); Neutrophils Absolute Auto 6.9 x10*3/uL (2.0-8.3); Neutrophils Percent Auto 77.4 % (45-73); Platelet Count 190 X10*3/uL (160-400); Red Blood Count 4.16 X10*6/uL (4.60-5.80); Red Cell Distribution Width 13.3 % (11.0-16.0)
[2022-07-15 01:26] LABS: Lactic Acid 1.4 mmol/L (0.5-2.0)
[2022-07-15 01:28] LABS: INTERNATIONAL NORM RATIO 1.2 (0.9-1.1); Prothrombin Time 13.4 SEC (10.0-13.1)
[2022-07-15 01:32] LABS: COVID-19 Test Negative (Negative); IDNOW Serial# 16C4AD1C
[2022-07-15 01:34] LABS: Alanine Aminotransferase 16 U/L (0-40); Albumin Level 4.1 g/dL (3.5-5.0); Alkaline Phosphatase 78 U/L (39-117); Anion Gap 15 (12-20); Aspartate Amino Transferase 20 U/L (5-37); Bilirubin Total 0.3 mg/dL (0.0-1.0); Blood Urea Nitrogen 17 mg/dL (9-16); Calcium 9.5 mg/dL (8.4-10.2); Carbon Dioxide 26 mmol/L (22-29); Chloride 103 mmol/L (96-108); Creatinine Clr Calc Pharmacy 54.1; Estimated Glomerular Filt Rate > 60; Glucose Random 137 mg/dL (60-115); Potassium 3.8 mmol/L (3.3-5.1); Sodium 140 mmol/L (135-145); Total Protein 6.6 g/dL (6.5-8.0)
[2022-07-15] MEDS: iohexoL 350 MG/ML 100 ML INFUS..BTL IV (01:59)
[2022-07-15] MEDS: HYDROmorphone HCl 1 MG/ML SYRINGE IVPUSH (03:50)
--- NOTE | 2022-07-15 04:00 | PC.NURSE ---
Pt ambulated to the bathroom with one assist. Pt was given dilaudid prior to ambulation. Pt stated that his pain was a 15, now it's an 8. He feels much better.
[2022-07-15 05:13] VITALS: BP 149/75; PULSE 77; RESP 18; O2SAT 94
--- NOTE | 2022-07-15 08:12 | PC.NURSE ---
pt seen by odette (tarsha) pt aware of plan of care.
[2022-07-15 08:17] VITALS: BP 160/76; PULSE 80; RESP 14; TEMP 36.4; O2SAT 99
[2022-07-15 08:34] LABS: Hematocrit 34.1 % (42.0-52.0); Hemoglobin 11.5 g/dl (14.0-18.0); Mean Corpuscular HGB Conc 33.7 g/dl (31.0-36.0); Mean Corpuscular Hemoglobin 29.9 pg (27.0-33.0); Mean Corpuscular Volume 88.6 fL (80.0-98.0); Platelet Count 200 X10*3/uL (160-400); Red Blood Count 3.85 X10*6/uL (4.60-5.80); Red Cell Distribution Width 13.5 % (11.0-16.0); White Blood Count 11.5 X10*3/uL (4.8-10.8)
--- NOTE | 2022-07-15 08:48 | PC.NURSE ---
pt is a/o x 4 no sob/geremias noted skin pink warm dry except for l posterior upper thigh with swelling and large area of deep purple bruising which is wrapped with an tricia bandage. +pp via dopper to l leg. pt amb (i) gait steady with pain on palpitation ad movement. heart sound - irregular. lungs - cta. pt aware of plan care.
--- NOTE | 2022-07-15 10:16 | PHA.MEDREC ---
Pharmacy Consult ? Medication Reconciliation Pharmacy has completed the medication reconciliation.
--- NOTE | 2022-07-15 11:00 | PC.NURSE ---
dr. mullins at bedside, pt aware of plan of care.
--- NOTE | 2022-07-15 11:44 | PM.IMHP ---
History of Present Illness Date of Service: 07/15/22 Attending physician on admission: [facility] Chief Complaint: hematoma left thigh 82 year old male with history of persistent atrial fibrillation on eliquis, htn, cad s/p cabgm hld, and crohns disease presented to the ED this morning for evaluation of a large hematoma in the left posterior thigh. Denies falls or overt trauma. However, states on tuesday he was much more active than usual- walking up hills and prolonged periods of walking. Following this he developed ecchymosis of the posterior thigh. Yesterday morning developed pain in the area that gradually worsened to 10/10 pain last night. 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 No other active bleed. WBC 11.5. H/H 11.5/34.1% (earlier this morning 12.3/36.9%). EKG with atrial fibrillation, rate 77. CT femur showed IM hematoma at the posterior thigh in the region of sartorius with active hemorrhage into the hematoma. Also addl edema along the deep fascial planes and superficially. Review of Systems Review of Systems: General: No fevers, malaise, unintentional weight loss Cardiovascular: No chest pain, palpitations, or leg edema Respiratory: No shortness of breath, wheezing, cough GI: No abdominal pain, nausea, vomiting, diarrhea, constipation, melena, hematochezia MSK: +pain posterior left thigh with hematoma Neuro: No headaches, weakness, paresthesias Skin: No rashes or lesions [facility] Medical History (Updated 07/15/22 @ 11:53 by AIDAN Mcqueen) Atherosclerotic cardiovascular disease Essential hypertension Mixed hyperlipidemia Persistent atrial fibrillation Family History (Updated 07/15/22 @ 11:56 by AIDAN Mcqueen) Father Stomach cancer Mother Cancer Brother Prostate cancer Bladder cancer Sister Heart disease Small intestine cancer Other Leukemia Lung cancer Surgical History Status post aorto-coronary artery bypass graft Social History Alcohol intake: never Patient Tobacco Use Status: Former Tobacco user Smoked in Last 30 Days: No Use of substances other than those prescribed or required for medical reasons: No Advance Directives: No Advance Directives Information Provided: Yes Meds Allergies Allergy/AdvReac Type Severity Reaction Status Date / Time No Known Allergies Allergy Mild NONE Verified 07/08/22 11:16 Active Medications: Current Medications Acetaminophen (Acetaminophen 325 Mg Tablet) 650 mg PO Q6H PRN PRN Reason: Pain, Mild (Pain Scale 1-3) Amlodipine Besylate (Amlodipine Besylate 10 Mg Tablet) 10 mg PO DAILY [facility]; Protocol Melatonin (Melatonin 3 Mg Tablet) 6 mg PO BEDTIME PRN PRN Reason: Insomnia Mesalamine (Mesalamine 250 Mg Capsule.Er) 1,000 mg PO BID [facility] Metoprolol Succinate (Metoprolol Succinate Er 25 Mg Tab.Er.24h) 25 mg PO DAILY [facility]; Protocol Oxycodone HCl (Oxycodone Hcl Immed Release 5 Mg Tablet) 5 mg PO Q6H PRN PRN Reason: Pain, Severe (Pain Scale 7-10) Sodium Chloride (0.9 % Sodium Chloride Flush 3 Ml Syringe) 3 ml IVFLUSH QSHIFT [facility] Home Medications Medication Instructions Recorded Confirmed Last Taken Type mesalamine 500 mg capsule,extended 1,000 mg PO BID 08/25/20 07/15/22 Unknown History release (Pentasa) risankizumab-rzaa 150 mg/1.66 mL See Rx Instructions subcut PER PKG 11/13/20 07/15/22 Unknown History (75 mg/0.83mL x 2) subcut syringe DIR kit (Skyrizi) Physical Exam Vital Signs and Narrative: Vital Signs: Last Vital Signs Temp 97.6 F 07/15/22 08:17 Pulse 80 07/15/22 08:17 Resp 14 07/15/22 08:17 BP 160/76 H 07/15/22 08:17 Pulse Ox 99 07/15/22 08:17 O2 Del Method 07/15/22 08:17 BMI result Body Mass Index 32.1 Constitutional - Awake and Alert, No apparent distress Eyes - PERRLA, EOMI Cardiovascular - S1S2, RRR, No edema Respiratory - Normal lung expansion, Normal respiratory effort, No respiratory distress, CTA bilaterally Gastrointestinal - NT / ND; +BS; No rebound or guarding Extremities - no calf tenderness bilaterally. Ecchymotic lesion diffusely covering left posterior thigh with firm moderately tender central area Skin - Warm/Dry Neurological - Alert & oriented x3, CN II-XII in tact. 5/5 strength BLE and BUE Psychological - Appropriate affect Results Labs CBC and Chem 7: 07/15/22 08:28 07/15/22 01:09 Labs: Laboratory Results - last 24 hr 07/15/22 07/15/22 07/15/22 01:09 01:09 01:09 MCV 88.7 MCH 29.6 MCHC 33.3 RDW 13.3 Plt Count 190 MPV 11.2 Immature Gran % (Auto) 0.8 H Neut % (Auto) 77.4 H Lymph % (Auto) 10.5 L [place] % (Auto) 6.1 Eos % (Auto) 4.4 H Baso % (Auto) 0.8 Lymph # (Auto) 0.9 L [place] # (Auto) 0.6 Eos # (Auto) 0.4 Baso # (Auto) 0.1 Abs Immat Gran (auto) 0.07 H Absolute Neuts (auto) 6.9 Absolute Nucleated RBC 0.000 Nucleated RBC % (auto) 0.0 PT 13.4 H INR 1.2 H Anion Gap Estim Creat Clear Calc Estimated GFR Random Glucose Lactic Acid Calcium Total Bilirubin AST ALT Alkaline Phosphatase Total Protein Albumin COVID-19 (JUANCARLOS) Negative COVID-19 Clin Com See Note 07/15/22 07/15/22 07/15/22 01:09 01:09 08:28 MCV 88.6 MCH 29.9 MCHC 33.7 RDW 13.5 Plt Count 200 MPV 11.0 Immature Gran % (Auto) Neut % (Auto) Lymph % (Auto) [place] % (Auto) Eos % (Auto) Baso % (Auto) Lymph # (Auto) [place] # (Auto) Eos # (Auto) Baso # (Auto) Abs Immat Gran (auto) Absolute Neuts (auto) Absolute Nucleated RBC 0.000 Nucleated RBC % (auto) 0.0 PT INR Anion Gap 15 Estim Creat Clear Calc 54.1 Estimated GFR > 60 Random Glucose 137 H Lactic Acid 1.4 Calcium 9.5 D Total Bilirubin 0.3 AST 20 D ALT 16 Alkaline Phosphatase 78 Total Protein 6.6 Albumin 4.1 COVID-19 (JUANCARLOS) COVID-19 Clin Com Imaging Radiologist's Impressions: Impressions Femur CT 07/15/22 00:35 IMPRESSION: Intramuscular hematoma at the posterior thigh in the region of the sartorius. There appears to be active hemorrhage into the hematoma. Additional edema along the deep fascial planes and superficially. This critical result was discussed with Juan F Contreras MD by telephone at 07/15/2022 3:38 AM and it was ascertained that the content and urgency of the report was understood at the time of direct communication. Assessment and Plan (1) Hematoma of left lower extremity: Status: Acute Plan 82 year old male with history of persistent atrial fibrillation on eliquis, htn, cad s/p cabg, hld, and crohns disease to be observed for large hematoma L posterior thigh with active hemorrhage on eliquis. 1- Hematoma LLE- related to over activity resulting in muscle injury with bleeding secondary to eliquis use -Hold eliquis -Follow CBC to monitor for further bleeding. He is hemodynamically stable -Compression wraps and ice packs -Leukocytosis secondary to inflammation, not infection. Follow CBC 2-Persistent atrial fibrillation- rate controlled -Hold eiquis as above d/t active bleeding -Continue metoprolol for rate -Follow up Dr. Barboza outpt 3-HTN- reasonably well controlled -COntinue metoprolol and amlodipine -Monitor BPs 4-HLD w/ history CAD -Not on statin per pt- last cardiology note reports atorvastatin 40mg -Follow up with cardiology oupt 5-Crohns- stable -Continue mesalamine -Hold skyrizi for now DVT prophylaxis- mechanical and ambulation Full code Quality Stroke Does the patient have a stroke diagnosis?: No VTE Prior VTE?: No VTE Risk Level:: Medical - moderate - high VTE Device Contraindication: Procedure Contraindicated VTE Drug Contraindication: Treatment Not Tolerated
[2022-07-15] MEDS: Metoprolol Succinate ER 25 MG TAB.ER.24H PO (12:12)
[2022-07-15] MEDS: Mesalamine 250 MG CAPSULE.ER 1000 MG PO ×2 (12:12→22:21)
[2022-07-15] MEDS: amLODIPine Besylate 10 MG TABLET PO (12:12)
[2022-07-15 19:37] VITALS: BP 156/75; PULSE 81; RESP 18; TEMP 36.8; O2SAT 97
[2022-07-15] MEDS: Acetaminophen 325 MG TABLET 650 MG PO (19:45)
[2022-07-15] MEDS: 0.9 % Sodium Chloride Flush 3 ML SYRINGE IVFLUSH (19:45)
[2022-07-15] MEDS: oxyCODONE HCl Immed Release 5 MG TABLET PO (19:49)
[2022-07-16] VITALS: BP 139/66; PULSE 77; RESP 14; TEMP 36.9; O2SAT 96
[2022-07-16 06:57] LABS: Hematocrit 31.4 % (42.0-52.0); Hemoglobin 10.2 g/dl (14.0-18.0); Mean Corpuscular HGB Conc 32.5 g/dl (31.0-36.0); Mean Corpuscular Hemoglobin 29.5 pg (27.0-33.0); Mean Corpuscular Volume 90.8 fL (80.0-98.0); Mean Platelet Volume 11.5 fL (9.4-12.4); Platelet Count 186 X10*3/uL (160-400); Red Blood Count 3.46 X10*6/uL (4.60-5.80); Red Cell Distribution Width 13.4 % (11.0-16.0); White Blood Count 8.7 X10*3/uL (4.8-10.8)
[2022-07-16 07:37] VITALS: BP 138/64; PULSE 81; RESP 18; O2SAT 98
[2022-07-16 07:39] LABS: Glucose, Whole Blood 105 mg/dL (60-115)
[2022-07-16 08:37] VITALS: BP 177/75; PULSE 79; RESP 18; TEMP 36.9; O2SAT 93
[2022-07-16] MEDS: amLODIPine Besylate 10 MG TABLET PO (09:58)
[2022-07-16] MEDS: Mesalamine 250 MG CAPSULE.ER 1000 MG PO (09:58)
[2022-07-16] MEDS: Metoprolol Succinate ER 25 MG TAB.ER.24H PO (09:58)
--- NOTE | 2022-07-16 11:00 | PM.EVENT ---
Event Note Date of Service: 08/08/22 Event Note: 82 yo male who presented to the ED with left groin pain and swelling -he states this past tuesday he was getting ready for a family reunion, moving tables and chairs. he was doing a lot of walking and stair climbing. he states he has pulled muscles in his hamstring before and has had hematomas before and they resolved without a problem.
[2022-07-16 11:14] VITALS: BP 144/59; PULSE 73; RESP 18; TEMP 36.6; O2SAT 96
--- NOTE | 2022-07-16 11:31 | MHC.CM.PN ---
MCINTYRE 07/16/22, EMR REVIEWED, PT ADMITTED W/LEFT THIGH HEMATOMA, CM MET W/PT WHO REPORTS HE LIVES W/ AND HAS A SON WHO ASSISTS IF NEEDED, PT REPORTS HE IS INDEPENDENT W/ALL CARE, DENIES USE OF DME AND DENIES HOME SERVICES, PT VERIFIES PCP IS WILLIAM GUIDRY, COVID VACCINATED X4, PT REPORTS HIS [facility] [phone] IS HIS HCP AND COPY ON FILE IN OLD RECORDS. D/C PLAN: ANAHI D/C LATER TODAY W/FAMILY FOR TRANSPORT.
--- NOTE | 2022-07-16 13:07 | PC.NURSE ---
Pt A&ox4, no complaints of pain at this time. States ROM is improving, ambulates to the BR independently with a steady gait. MD at bedside, plan for DC later today. Call ruiz within reach. Will continue to monitor.
--- NOTE | 2022-07-16 15:02 | PM.DS ---
DS: Providers Provider Date of Service: 07/16/22 Date of admission: 07/15/22 10:38 Primary care physician: Servando Shankar MD Consults: 07/16/22 10:46 Consult to Orthopedics Routine Consulting Provider: Oscar Holley Reason for consultation: hematoma in tigh, annettesise on further testing and how long to hold anticoagu DS: Diagnosis Discharge Diagnosis (1) Hematoma of left lower extremity: Status: Acute DS: Summary Status at Discharge Cognitive/behavioral status at discharge: Chief Complaint: hematoma left thigh 82 year old male with history of persistent atrial fibrillation on Whatser, htn, cad s/p cabgm hld, and crohns disease presented to the ED this morning for evaluation of a large hematoma in the left posterior thigh. Denies falls or overt trauma. However, states on tuesday he was much more active than usual- walking up hills and prolonged periods of walking. Following this he developed ecchymosis of the posterior thigh. Yesterday morning developed pain in the area that gradually worsened to 10/10 pain last night. 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 No other active bleed. WBC 11.5. H/H 11.5/34.1% (earlier this morning 12.3/36.9%). EKG with atrial fibrillation, rate 77. CT femur showed IM hematoma at the posterior thigh in the region of sartorius with active hemorrhage into the hematoma. Also addl edema along the deep fascial planes and superficially. Hospital course: Patient was observed overnight with no enlargement of the hematoma and H/H has been stable. Patient further states that he has had these before. Was evaluated by ortho and no need for intervention but anticoagulation to be restarted gradually, I say at least one week and should be further discussed with PcP and clinical administrative coordinator Time Spent with Patient Time attestation: Total time spent providing and/or coordinating discharge services: Discharge coordination time: Greater than 30 minutes Quality: Safe Use of Opioids Does Pt have an Active Cancer Diagnosis on the Problem List?: No Quality: Stroke Does the patient have a stroke diagnosis?: No Physical Exam Vital Signs: Vital Signs: Last Vital Signs Temp 97.8 F 07/16/22 11:14 Pulse 73 07/16/22 11:14 Resp 18 09/16/22 11:14 BP 144/59 H 07/16/22 11:14 Pulse Ox 96 07/16/22 11:14 O2 Del Method 07/16/22 11:14 BMI result Body Mass Index 32.1 DS: Data Data Completed and Pending Labs on day of discharge: Laboratory Results - last 24 hr 07/16/22 07/16/22 06:38 07:18 WBC 8.7 RBC 3.46 L Hgb 10.2 L Hct 31.4 L MCV 90.8 MCH 29.5 MCHC 32.5 RDW 13.4 Plt Count 186 MPV 11.5 Absolute Nucleated RBC 0.000 Nucleated RBC % (auto) 0.0 POC Glucose 105 Discharge Plan Discharge Anticipated Discharge Date/Time: 07/16/22 14:57 Patient Disposition: Home, Self-Care Discharge Diagnosis: Hematoma Referrals: Servando Shankar MD [Primary Care Provider] - 1 Week Discharge Medications: Continued metoprolol succinate 25 mg tablet extended release 24 hr 25 mg PO DAILY Qty: 90 3RF Pentasa 500 mg capsule, extended release 1,000 mg PO BID Skyrizi 150mg/1.66mL(75 mg/0.83 mL x2) syringe kit See Rx Instructions subcut PER PKG DIR Rx Instructions: subcut PER PKG DIR amlodipine 10 mg tablet 10 mg PO DAILY Qty: 90 3RF Discontinued Eliquis 5 mg tablet 5 mg PO BID Qty: 60 5RF Discharge Orders: Discharge Order (Routine); Ordered 07/16/22 Ordered By: Bryson Newsome Diet: Advance to usual diet Activity on Discharge: As tolerated Stand Alone Forms: Patient Portal Discharge page Care Plan Goals: full resolution of hematoma Health Concerns: hematoma Plan of Treatment: stay off blood thiner (eliquis) until you see your doctor Assessment: as above
--- NOTE | 2022-08-08 20:45 | PM.CNOR ---
History of Present Illness HPI Consult date: 07/16/22 Chief complaint: left tigh hematoma Narrative: 82 yo male who was admitted to the medical service due to an injury to his groin assocated with a hematoma. There was evidence of active bleeding on CT scan therefore Orthopedics was contacted for further recommendations. The patient mentioned he is on anticoagulant therapy and on several occassions he has had hematomas in the lower legs which resolve on their own. He states over the weekend, he was getting ready for a family reunion when he did feel some increased pain in the groin region. He felt it was a pulled muscle but due to the worsening pain and burising he presented to the ED. Review of Systems Review of Systems: per Hpi [facility] Past Medical History Medical History (Updated 07/15/22 @ 11:53 by AIDAN Mcqueen) Atherosclerotic cardiovascular disease Essential hypertension Mixed hyperlipidemia Persistent atrial fibrillation Family History Family History (Updated 07/15/22 @ 11:56 by AIDAN Mcqueen) Father Stomach cancer Mother Cancer Brother Prostate cancer Bladder cancer Sister Heart disease Small intestine cancer Other Leukemia Lung cancer Surgical History Surgical History Status post aorto-coronary artery bypass graft Social History Social History Alcohol intake: never Patient Tobacco Use Status: Former Tobacco user service: Yes Current occupational status: retired [employer] Allergies Allergy/AdvReac Type Severity Reaction Status Date / Time No Known Allergies Allergy Mild NONE Verified 07/08/22 11:16 Home Medications Medication Instructions Recorded Confirmed Last Taken Type mesalamine 500 mg capsule,extended 1,000 mg PO BID 08/25/20 07/15/22 Unknown History release (Pentasa) risankizumab-rzaa 150 mg/1.66 mL See Rx Instructions subcut PER PKG 11/13/20 07/15/22 Unknown History (75 mg/0.83mL x 2) subcut syringe DIR kit (Nallely) Physical Exam Vital Signs: Vital Signs: Last Vital Signs Temp 97.8 F 07/16/22 11:14 Pulse 73 07/16/22 11:14 Resp 18 07/16/22 11:14 BP 144/59 H 07/16/22 11:14 Pulse Ox 96 07/16/22 11:14 O2 Del Method 07/16/22 11:14 BMI result Body Mass Index 32.1 Const: General: cooperative, healthy appearing and comfortable Extrem: Other: Left thigh has some ecchymosis and swelling, but compartments are soft. No tenderness out of porportion and pulses are intact. Results Labs Result Diagrams: 07/16/22 06:38 07/15/22 01:09 Labs: H & H 07/15/22 07/15/22 07/16/22 Range/Units 01:09 08:28 06:38 Hgb 12.3 L 11.5 L 10.2 L (14.0-18.0) g/dl Hct 36.9 L 34.1 L 31.4 L (42.0-52.0) % Coagulation 07/15/22 Range/Units 01:09 INR 1.2 H (0.9-1.1) All other labs normal. Assessment and Plan (1) Hematoma of left lower extremity: Status: Acute Plan At this time there is no evidence of compartment syndrome. Patients symptoms are consistent with hematoma from anticoag therapy and possible groin strain. I recommend symptomatic treatment and resume anticoag per medicine. Will continue to follow as needed. Procedures Date of Service Date of Service: 08/08/22
== END 2022-07-16 19:54 | disposition home or self-care (01) ==
LOC: HO.ED 05:05 → HO.EDOVER 10:46
PROVIDERS: Emergency Medicine; Admitting Provider Internal Medicine; Emergency Provider Internal Medicine; PCP Family Medicine; Visit Provider Internal Medicine
DX: S80.12XA Contusion of left lower leg, initial encounter (principal); X50.0XXA Overexertion from strenuous movement or load, initial encounter; R22.42 Localized swelling, mass and lump, left lower limb; Z20.822 Contact with and (suspected) exposure to COVID-19; I10 Essential (primary) hypertension; E78.2 Mixed hyperlipidemia; I48.19 Other persistent atrial fibrillation; K50.90 Crohn's disease, unspecified, without complications; E66.01 Morbid (severe) obesity due to excess calories; Z68.32 Body mass index [BMI] 32.0-32.9, adult; Z95.1 Presence of aortocoronary bypass graft; Z79.01 Long term (current) use of anticoagulants; Z79.02 Long term (current) use of antithrombotics/antiplatelets; Y93.31 Activity, mountain climbing, rock climbing and wall climbing; Y92.828 Other wilderness area as the place of occurrence of the external cause; Y99.8 Other external cause status
CPT/HCPCS: 36415; 73701; 80053; 82947; 83605; 85025; 85027; 85610; 87635; 93005; 96374; 96375; 99218; 99285; J1170; J2270; Q9967

== ENCOUNTER 2022-10-06 08:22 | Outpatient (REF) | payer MEDICARE, SELFPAY ==
--- NOTE | 2022-10-06 10:28 | MHC.AU.HFU ---
Hearing Instrument Follow-Up- Binaural Date of Visit: 10/06/22 Right Ear: Phonak Bolero B50-SP BTE, [id number], [employer] Rep[employer] Warranty: 01/15/2023 Loss and Damage Warranty: 01/15/2023 Battery Size: 13 Tubing: Tube Lock Type of Mold: Microsonic Skeleton Dispensed By: [facility] Date of Fittin11/06/2019 Left Ear: Phonak Bolero B50-SP BTE, [id number], [employer] Rep[employer] Warranty: 01/15/2023 Loss and Damage Warranty: 01/15/2023 Battery Size: 13 Tubing: Tube Lock Type of Mold: Microsonic Skeleton Dispensed By: [facility] Date of Fittin11/06/2019 Follow-Up Summary: Cirilo is here for a hearing evaluation followed by a hearing aid check. He is accompanied by his . Hearing is stable bilaterally. See audiogram for report. Hearing aids were programmed to today's audiogram. Ear mold tubing had hardened so the ear molds were re-tubed. Hearing aids were brushed and cleaned. Listening check reveals clear sound bilaterally. The patient reported good sound. He does experience some difficulty with speech understanding at times, particularly when people wear masks. We spent time discussing the patients hearing loss, very poor recognition ability and realistic expectations with hearing aids. I recommended a referral to ENT and audiology for a cochlear implant evaluation. I explained that this will likely be at [facility]. I will request a referral from the patient's PCP. The patient and his are interested in the cochlear implant evaluation and to learn more about the process. I did briefly review cochlear implants with the patient. Discussed communication strategies to use and recommended to return in 1 year for annual visit, sooner if concerns arise. All patient questions were answered. Diagnosis Code(s): Primary Diagnosis: H90.3 Bilateral Sensorineural Hearing Loss Signature: Provider: Carmela Horner, [facility]
== END 2022-10-06 08:23 | disposition home or self-care (01) ==
LOC: HO.SH 08:22
PROVIDERS: Visit Provider Family Medicine
DX: Z01.118 Encounter for examination of ears and hearing with other abnormal findings (principal); H90.3 Sensorineural hearing loss, bilateral
CPT/HCPCS: 92557; 92567

== ENCOUNTER 2022-12-17 11:05 | Outpatient (REF) | payer SELFPAY ==
--- NOTE | 2022-12-17 11:52 | MHC.AU.HA3 ---
Hearing Instrument Follow-Up- Binaural Date of Visit: 12/17/22 Right Ear:Vimal, , Color, Serial Number: Elmira Levy0-SP BTE, #[id number], Silver Carter Tobacco Packing Machine Operator Repair Warranty: 01/15/2023 Tobacco Packing Machine Operator Loss and Damage Warranty: 01/15/2023 [facility] Service Plan: 01/15/2023 Battery Size: 13 Earmold/Dome/CShell/SlimTip:Microsonic Skeleton with Tube Lock Dispensed By: [facility] Date of Fittin11/06/2019 Left Ear:Vimal, , Color, Serial Number: Elmira Levy0-SP RAEE, #[id number], Silver Carter Tobacco Packing Machine Operator Repair Warranty: 01/15/2023 Tobacco Packing Machine Operator Loss and Damage Warranty: 01/15/2023 [facility] Service Plan: 01/15/2023 Battery Size: 13 Earmold/Dome/CShell/SlimTip: Microsonic Skeleton with Tube Lock Dispensed By: [facility] Date of Fittin11/06/2019 Follow-Up Summary: Patient requested hearing aid maintenance as the tubing is very hard. Changed the tubing, cleaned the hearing aids, microphones, contacts, and ear molds. Both earhooks were loose, replaced both. Both aids amplifying clearly. Hearing aids are going out of warranty on 01/15/2023. Recommended sending the aids to [facility] prior to the warranty expiration. Patient says he has old hearing aid he could use if he decides to send the aids in before 01/15/2023. Also provided the new service fee handout recommending to purchase the extended 3 year service agreement as needs frequent tubing change. Patient will schedule appointment if he wants to send aids out. Recommendations:Hearing instrument follow-up or maintenance as needed. Please contact our clinic with any questions or concerns. Diagnosis Code(s):Primary Diagnosis: H90.3 Bilateral Sensorineural Hearing Loss Signature:Provider: Renan Moses, [facility]
== END 2022-12-17 11:06 | disposition home or self-care (01) ==
LOC: HO.HAP 11:05
PROVIDERS: Visit Provider Family Medicine
DX: Z13.89 Encounter for screening for other disorder (principal)

== ENCOUNTER → 2023-02-09 13:29 | Outpatient (BNVA) | payer MEDICARE, SELFPAY | PROVIDERS: PCP Family Medicine; Referring Provider Family Medicine; Visit Provider Internal Medicine | DX: I25.10 Atherosclerotic heart disease of native coronary artery without angina pectoris (principal); I10 Essential (primary) hypertension; I48.19 Other persistent atrial fibrillation; E78.2 Mixed hyperlipidemia; E66.01 Morbid (severe) obesity due to excess calories; Z68.31 Body mass index [BMI] 31.0-31.9, adult; Z95.1 Presence of aortocoronary bypass graft | CPT/HCPCS: 99212 ==

== ENCOUNTER 2023-02-16 09:26 | Outpatient (REF) | payer MEDICARE, SELFPAY ==
[2023-02-16 11:01] LABS: Alanine Aminotransferase 16 U/L (0-40); Albumin Level 4.3 g/dL (3.5-5.0); Alkaline Phosphatase 96 U/L (39-117); Aspartate Amino Transferase 18 U/L (5-37); Bilirubin Direct 0.4 mg/dL (0.0-0.5); Bilirubin Total 1.3 mg/dL (0.0-1.0); Cholesterol 130 mg/dL; HDL Cholesterol 37 mg/dL; LDL Cholesterol Calculated 62 mg/dl; Total Protein 6.3 g/dL (6.5-8.0); Triglycerides 158 mg/dL
== END 2023-02-16 09:27 | disposition home or self-care (01) ==
LOC: HO.LAB 09:26
PROVIDERS: PCP Family Medicine; Visit Provider Internal Medicine
DX: I25.10 Atherosclerotic heart disease of native coronary artery without angina pectoris (principal); E78.5 Hyperlipidemia, unspecified
CPT/HCPCS: 36415; 80061; 80076

== ENCOUNTER 2023-03-15 08:02 | Outpatient (REF) | payer SELFPAY | END 2023-03-15 08:03 | disposition home or self-care (01) | LOC: HO.HAP 08:02 | PROVIDERS: Visit Provider Family Medicine | DX: Z46.1 Encounter for fitting and adjustment of hearing aid (principal); H90.3 Sensorineural hearing loss, bilateral | CPT/HCPCS: 92593 ==

== ENCOUNTER 2023-09-30 09:14 | Outpatient (AMB) | payer MEDICARE, SELFPAY ==
[2023-09-30 09:19] VITALS: BP 142/70; PULSE 55; BMI 31.4
--- NOTE | 2023-09-30 09:19 | MHC.OFFVIS ---
Intake Vital Signs 09/30/23 09:19 Height 5 ft 8 in Weight 206 lb 5.643 oz BMI 31.4 BP 142/70 H Blood Pressure Location Lt brachial Position Sitting Pulse 55 Pulse Source Pulse Oximeter Intake Visit Reasons: R/S 6 month follow up Allergies No Known Allergies Allergy (Mild, Verified 09/30/23 09:23) NONE Medication List - Last Reconciled 09/30/23 by Shweta Caceres, [facility] amlodipine 10 mg PO DAILY apixaban (Eliquis) 5 mg PO BID atorvastatin 40 mg PO DAILY carvedilol (Coreg) 12.5 mg PO BID 90 days mesalamine ER (Pentasa) 1,000 mg PO BID risankizumab-rzaa (Skyrizi) subcut PER PKG DIR tamsulosin 0.4 mg PO DAILY HPI R/S 6 month follow up HPI Details Cirilo is an 83-year-old male with past medical history of hypertension, hyperlipidemia, CAD, coronary artery bypass grafting, paroxysmal atrial fibrillation who presents for follow-up. Today he reports he has been feeling well with no concerning symptoms. His only complaint is of shoulder discomfort. This made him not be able to play softball this past summer. He has remained active with walking and stair climbing. No chest discomfort at rest or with activity. No heart palpitations, shortness of breath, presyncope, syncope, PND, orthopnea or edema. Taking medications as directed. No bleeding issues reported. is present. [facility] Medical History Persistent atrial fibrillation Mixed hyperlipidemia Essential hypertension Atherosclerotic cardiovascular disease Surgical History Status post aorto-coronary artery bypass graft Family History Father Stomach cancer Mother Cancer Brother Prostate cancer Bladder cancer Sister Heart disease Small intestine cancer Other Leukemia Lung cancer Social History Alcohol intake: never Patient Tobacco Use Status: Former Tobacco user service: Yes Current occupational status: retired Review of Systems Const All systems reviewed & are unremarkable except as noted in HPI and below ENT Denies dizziness Card Denies chest pain, Denies chest pain at rest, Denies chest pain with activity, Denies rapid heart rate, Denies pedal edema, Denies edema, Denies leg edema, Denies lightheadedness, Denies palpitations, Denies dyspnea, Denies dyspnea on exertion and Denies orthopnea Resp Denies cough, Denies dyspnea and Denies dyspnea on exertion GI Denies hematochezia and Denies change in stool character Musc Denies abnormal gait, Reports limited range of motion (shoulder issues), Denies muscle cramps, Denies muscle weakness, Denies numbness, Denies radiating pain into limb, Denies stiffness and Denies tingling Neuro Denies abnormal gait, Denies dizziness, Denies numbness and Denies tingling Endo Denies palpitations Physical Exam Vital Signs: Last Vital Signs Pulse 55 09/30/23 09:19 BP 142/70 H 09/30/23 09:19 BMI result Body Mass Index 31.4 Const General: cooperative, healthy appearing, comfortable and no acute distress Orientation/consciousness: patient oriented x3 Neck Neck: Yes normal visual inspection Resp Effort & Inspection: normal respiratory effort Auscultation: clear to auscultation bilaterally, no crackles, no rales, no rhonchi and no wheezes Cardio Jugular venous distension: no JVD Rate: regular rate Rhythm: regular rhythm Heart sounds: S1 normal heart sound present, S2 normal heart sound present, no murmurs and no rubs Neuro General: patient oriented x3 Extrem General: Yes normal to inspection Psych Appearance: grossly normal Mental Status: mental status grossly normal Speech and movement: Normal speech and movement present Office Procedures EKG Details: Today, read by me, atrial fibrillation, no acute ST or T-wave abnormalities, rate 61, QTC 428 milliseconds [id number], Complete Assessment & Plan Assessment & Plan (1) Persistent atrial fibrillation: Code(s): I48.19 - Other persistent atrial fibrillation Plan: History of persistent atrial fibrillation. Being treated with heart rate control with use of carvedilol. He is on Eliquis for anticoagulation. No bleeding issues reported. EKG done today shows atrial fibrillation with heart rate 61. Labs done on 07/15/2022 showed creatinine 1.14. Labs are followed by his PCP. No med changes made today (2) Atherosclerotic cardiovascular disease: Code(s): I25.10 - Atherosclerotic heart disease of [place] coronary artery without angina pectoris Plan: History of CAD with prior coronary artery bypass grafting. Last echocardiogram done on 10/21/2020 showed normal EF, borderline left atrial enlargement, moderate mitral annular calcification with normal Doppler. Today he reports feeling well with no anginal sounding symptoms. He has good activity tolerance. EKG showing atrial fibrillation with no acute ST or T-wave abnormalities. He is not on aspirin as he is on Eliquis. He is on atorvastatin with ideal LDL goal less than 70. He continues on carvedilol. Signs and symptoms of angina reviewed. Emergency care if ever needed for symptoms. Cardiology follow-up 6 months, sooner if needed (3) Status post aorto-coronary artery bypass graft: Code(s): Z95.1 - Presence of aortocoronary bypass graft Plan: As above (4) Essential hypertension: Code(s): I10 - Essential (primary) hypertension Plan: Adequately controlled at present. Meds reviewed with him. Continue amlodipine and carvedilol. Reviewed low-salt diet. (5) Mixed hyperlipidemia: Code(s): E78.2 - Mixed hyperlipidemia Plan: [place] LDL goal less than 70. Labs followed by his PCP. Will for this note to his PCP for review Coding Level of Care Code Est Pt Level 4 (76806) Diagnoses Persistent atrial fibrillation I48.19 Atherosclerotic cardiovascular disease I25.10 Status post aorto-coronary artery bypass graft Z95.1 Essential hypertension I10 Mixed hyperlipidemia E78.2 CPT Codes EKG - CPT: [id number], Complete ([id number]) Time Spent (min) 28
== END 2023-09-30 09:58 | disposition home or self-care (01) ==
PROVIDERS: PCP Family Medicine; Visit Provider Nurse Practitioner Family
DX: I48.19 Other persistent atrial fibrillation (principal); I25.10 Atherosclerotic heart disease of native coronary artery without angina pectoris; Z95.1 Presence of aortocoronary bypass graft; I10 Essential (primary) hypertension; E78.2 Mixed hyperlipidemia
CPT/HCPCS: 93010; 99214

== ENCOUNTER → 2023-09-30 09:14 | Outpatient (BNVA) | payer MEDICARE, SELFPAY | PROVIDERS: PCP Family Medicine; Visit Provider Nurse Practitioner Family | DX: I48.19 Other persistent atrial fibrillation (principal); I25.10 Atherosclerotic heart disease of native coronary artery without angina pectoris; I10 Essential (primary) hypertension; E78.2 Mixed hyperlipidemia; Z95.1 Presence of aortocoronary bypass graft | CPT/HCPCS: 93005; 99212 ==

== ENCOUNTER 2023-11-30 14:24 | Outpatient (REF) | payer SELFPAY ==
--- NOTE | 2023-12-01 11:26 | MHC.AU.HA3 ---
Hearing Instrument Follow-Up- Binaural Date of Visit: 11/30/23 Right Ear: Model Vimal, Color, Serial Number: Elmira Collins B50-SP RAEE, #[id number], Silver [employer] Technology Development Intern Repair Warranty: 01/15/2023 Technology Development Intern Loss and Damage Warranty: 01/15/2023 [facility] Service Plan: 01/15/2023 Battery Size: 13 Earmold/Dome/CShell/SlimTip:Microsonic Skeleton with Tube Lock Type of Wax Guard: Dispensed By: [facility] Date of Fittin11/06/2019 Left Ear: Model Vimal, Color, Serial Number: Elmira Collins B50-SP RAEE, #[id number], Silver [employer] Technology Development Intern Repair Warranty: 01/15/2023 Technology Development Intern Loss and Damage Warranty: 01/15/2023 [facility] Service Plan: 01/15/2023 Battery Size: 13 Earmold/Dome/CShell/SlimTip: Microsonic Skeleton with Tube Lock Type of Wax Guard: Dispensed By: [facility] Date of Fittin11/06/2019 Follow-Up Summary: Cirilo visited for a tubing change and routine hearing aid maintenance. No issues reported. Tubing was very hard, significant debris found in microphones. Changed tubes and cleaned aids, listening check ok. Otoscopy shows nonoccluding wax bilaterally. Patient reported improved sound quality after cleaning. Aware of out of warranty charges. Follow up as needed. Recommendations: Recommendations: Hearing aid maintenance as needed. Diagnosis Code(s): Primary Diagnosis: H90.3 Bilateral Sensorineural Hearing Loss Signature: Provider: Carmela Quijano, [facility]
== END 2023-11-30 14:25 | disposition home or self-care (01) ==
LOC: HO.HAP 14:24
PROVIDERS: Visit Provider Family Medicine
DX: Z46.1 Encounter for fitting and adjustment of hearing aid (principal); H90.3 Sensorineural hearing loss, bilateral
CPT/HCPCS: 92593

== ENCOUNTER 2024-06-06 11:22 | Outpatient (REF) | payer SELFPAY | END 2024-06-06 11:23 | disposition home or self-care (01) | LOC: HO.HAP 11:22 | PROVIDERS: Visit Provider Family Medicine | DX: Z46.1 Encounter for fitting and adjustment of hearing aid (principal); H90.3 Sensorineural hearing loss, bilateral | CPT/HCPCS: 92593 ==

== ENCOUNTER 2024-06-06 12:12 | Outpatient (AMB) | payer MEDICARE, SELFPAY ==
[2024-06-06 12:28] VITALS: BP 138/60; PULSE 58; BMI 30.5
--- NOTE | 2024-06-06 12:28 | MHC.OFFVIS ---
Vital Signs 06/06/24 12:28 Height 5 ft 8 in Weight 200 lb 9.93 oz BMI 30.5 BP 138/60 Blood Pressure Location Lt brachial Position Sitting Pulse 58 Pulse Source Pulse Oximeter Intake Visit Reasons: 6 month follow up Allergies No Known Allergies Allergy (Mild, Verified 09/30/23 09:23) NONE Medication List - Last Reconciled 06/06/24 by Jerry Barboza MD apixaban (Eliquis) 5 mg PO BID atorvastatin 40 mg PO DAILY carvedilol 12.5 mg PO BID mesalamine ER (Pentasa) 1,000 mg PO BID risankizumab-rzaa (Skyrizi) subcut PER PKG DIR tamsulosin 0.4 mg PO DAILY HPI Comments Details: Cirilo returns for follow-up regarding coronary disease and atrial fibrillation. Overall, he states that he is doing fine. No complaints like angina or shortness of breath or in fact anything cardiac sounding. [facility] Medical History Persistent atrial fibrillation Mixed hyperlipidemia Essential hypertension Atherosclerotic cardiovascular disease Surgical History Status post aorto-coronary artery bypass graft Family History Father Stomach cancer Mother Cancer Brother Prostate cancer Bladder cancer Sister Heart disease Small intestine cancer Other Leukemia Lung cancer Social History Alcohol intake: never Patient Tobacco Use Status: Former Tobacco user service: Yes Current occupational status: retired Review of Systems Const Denies weakness ENT Denies dizziness Card Denies chest pain, Denies chest pain with activity, Denies syncope, Denies rapid heart rate, Denies pedal edema, Denies edema, Denies leg edema, Denies lightheadedness, Denies palpitations, Denies dyspnea, Denies dyspnea on exertion and Denies orthopnea Resp Denies cough, Denies dyspnea and Denies dyspnea on exertion GI Denies hematochezia and Denies change in stool character Musc Denies abnormal gait, Denies muscle cramps, Denies muscle weakness, Denies numbness, Denies radiating pain into limb and Denies tingling Neuro Denies abnormal gait, Denies dizziness, Denies syncope, Denies numbness, Denies tingling and Denies weakness Endo Denies palpitations Physical Exam Vital Signs: Last Vital Signs Pulse 58 06/06/24 12:28 BP 138/60 06/06/24 12:28 BMI result Body Mass Index 30.5 Const General: comfortable and no acute distress Orientation/consciousness: patient oriented x3 HEENT Other: Unremarkable Head: Yes normal to inspection Neck Neck: Yes normal visual inspection Chest Chest palpation & inspection: normal inspection of the chest Resp Auscultation: clear to auscultation bilaterally Cardio Palpation: normal PMI Heart sounds: S1 normal heart sound present, S2 normal heart sound present, no gallops, no murmurs and no rubs GI Palpation (GI): Soft to palpation Back/Spine/Pelvis Other: unremarkable Skin General skin exam: no rashes or lesions noted Neuro General: patient oriented x3 Extrem General: Yes normal to inspection Psych Mental Status: mental status grossly normal Assessment & Plan Assessment & Plan (1) Persistent atrial fibrillation: Code(s): I48.19 - Other persistent atrial fibrillation Category: Medical Plan: Totally asymptomatic. Continue beta-blockers and Eliquis. Most recent creatinine is 1.4. (2) Atherosclerotic cardiovascular disease: Code(s): I25.10 - Atherosclerotic heart disease of [place] coronary artery without angina pectoris Category: Medical Plan: No angina. Most recent LDL 38 mg/dL. (3) Status post aorto-coronary artery bypass graft: Code(s): Z95.1 - Presence of aortocoronary bypass graft Category: Surgical Plan: Stable. (4) Essential hypertension: Code(s): I10 - Essential (primary) hypertension Category: Medical Plan: Stable. Coding Level of Care Code Est Pt Level 4 (26079) Diagnoses Persistent atrial fibrillation I48.19 Atherosclerotic cardiovascular disease I25.10 Status post aorto-coronary artery bypass graft Z95.1 Essential hypertension I10
== END 2024-06-06 12:56 | disposition home or self-care (01) ==
PROVIDERS: PCP Family Medicine; Visit Provider Internal Medicine
DX: I48.19 Other persistent atrial fibrillation (principal); I25.10 Atherosclerotic heart disease of native coronary artery without angina pectoris; Z95.1 Presence of aortocoronary bypass graft; I10 Essential (primary) hypertension
CPT/HCPCS: 99214

== ENCOUNTER → 2024-06-06 12:12 | Outpatient (BNVA) | payer MEDICARE, SELFPAY | PROVIDERS: PCP Family Medicine; Visit Provider Internal Medicine | DX: I48.19 Other persistent atrial fibrillation (principal); I25.10 Atherosclerotic heart disease of native coronary artery without angina pectoris; I10 Essential (primary) hypertension; Z95.1 Presence of aortocoronary bypass graft | CPT/HCPCS: 99212 ==

== ENCOUNTER 2024-12-11 12:15 | Outpatient (AMB) | payer MEDICARE, SELFPAY ==
[2024-12-11 12:43] VITALS: BP 124/68; PULSE 60; BMI 30.5
--- NOTE | 2024-12-11 12:43 | MHC.OFFVIS ---
Vital Signs 12/11/24 12:43 Height 5 ft 8 in Weight 200 lb 9.93 oz BMI 30.5 BP 124/68 Blood Pressure Location Lt brachial Position Sitting Pulse 60 Pulse Source Monitor Intake Visit Reasons: 6 mth f/up Allergies No Known Allergies Allergy (Mild, Verified 09/30/23 09:23) NONE Medication List - Last Reconciled 12/11/24 by Jerry Barboza MD apixaban (Eliquis) 5 mg PO BID atorvastatin 40 mg PO DAILY carvedilol 12.5 mg PO BID mesalamine ER (Pentasa) 1,000 mg PO BID risankizumab-rzaa (Skyrizi) subcut PER PKG DIR tamsulosin 0.4 mg PO DAILY HPI Comments Details: Cirilo returns for follow-up regarding coronary disease and atrial fibrillation. Clinically, no angina or other clear-cut cardiac symptoms. He describes a vague sensation of dizziness whenever he gets back pain but not clear what that is. [facility] Medical History Persistent atrial fibrillation Mixed hyperlipidemia Essential hypertension Atherosclerotic cardiovascular disease Surgical History Status post aorto-coronary artery bypass graft Family History Father Stomach cancer Mother Cancer Brother Prostate cancer Bladder cancer Sister Heart disease Small intestine cancer Other Leukemia Lung cancer Social History Alcohol intake: never Patient Tobacco Use Status: Former Tobacco user service: Yes Current occupational status: retired Review of Systems Const Denies weakness ENT Denies dizziness Card Denies chest pain, Denies chest pain with activity, Denies syncope, Denies rapid heart rate, Denies pedal edema, Denies edema, Denies leg edema, Denies lightheadedness, Denies palpitations, Denies dyspnea, Denies dyspnea on exertion and Denies orthopnea Resp Denies cough, Denies dyspnea and Denies dyspnea on exertion GI Denies hematochezia and Denies change in stool character Musc Denies abnormal gait, Denies muscle cramps, Denies muscle weakness, Denies numbness, Denies radiating pain into limb and Denies tingling Neuro Denies abnormal gait, Denies dizziness, Denies syncope, Denies numbness, Denies tingling and Denies weakness Endo Denies palpitations Physical Exam Vital Signs: Last Vital Signs Pulse 60 12/11/24 12:43 BP 124/68 12/11/24 12:43 BMI result Body Mass Index 30.5 Const General: comfortable and no acute distress Orientation/consciousness: patient oriented x3 HEENT Other: Unremarkable Head: Yes normal to inspection Neck Neck: Yes normal visual inspection Chest Chest palpation & inspection: normal inspection of the chest Resp Auscultation: clear to auscultation bilaterally Cardio Palpation: normal PMI Heart sounds: S1 normal heart sound present, S2 normal heart sound present, no gallops, no murmurs and no rubs GI Palpation (GI): Soft to palpation Back/Spine/Pelvis Other: unremarkable Skin General skin exam: no rashes or lesions noted Neuro General: patient oriented x3 Extrem General: Yes normal to inspection Psych Mental Status: mental status grossly normal Office Procedures EKG Details: EKG with atrial fibrillation at a rate of 60/Min. 44457-Bzjgzvufvsisiojcj, Complete Assessment & Plan Assessment & Plan (1) Persistent atrial fibrillation: Code(s): I48.19 - Other persistent atrial fibrillation Category: Medical Plan: Continue beta-blockers and Eliquis. We will need to obtain labs from PCP. Last available creatinine is 1.4. (2) Atherosclerotic cardiovascular disease: Code(s): I25.10 - Atherosclerotic heart disease of [place] coronary artery without angina pectoris Category: Medical Plan: No angina. Most recent LDL 38 mg/dL. (3) Status post aorto-coronary artery bypass graft: Code(s): Z95.1 - Presence of aortocoronary bypass graft Category: Surgical Plan: Stable. (4) Essential hypertension: Code(s): I10 - Essential (primary) hypertension Category: Medical Plan: Stable. Coding Level of Care Code Est Pt Level 4 (41110) Diagnoses Persistent atrial fibrillation I48.19 Atherosclerotic cardiovascular disease I25.10 Status post aorto-coronary artery bypass graft Z95.1 Essential hypertension I10 CPT Codes EKG - CPT: 62249-Abucbfehvrhyttmva, Complete ([id number])
== END 2024-12-11 13:10 | disposition home or self-care (01) ==
PROVIDERS: PCP Family Medicine; Visit Provider Internal Medicine
DX: I48.19 Other persistent atrial fibrillation (principal); I25.10 Atherosclerotic heart disease of native coronary artery without angina pectoris; Z95.1 Presence of aortocoronary bypass graft; I10 Essential (primary) hypertension
CPT/HCPCS: 93010; 99214

== ENCOUNTER → 2024-12-11 12:15 | Outpatient (BNVA) | payer MEDICARE, SELFPAY | PROVIDERS: PCP Family Medicine; Visit Provider Internal Medicine | DX: I48.19 Other persistent atrial fibrillation (principal); I10 Essential (primary) hypertension; I25.10 Atherosclerotic heart disease of native coronary artery without angina pectoris; Z95.1 Presence of aortocoronary bypass graft; Z87.891 Personal history of nicotine dependence | CPT/HCPCS: 93005; 99212 ==

== ENCOUNTER 2025-04-08 14:20 | Outpatient (REF) | payer SELFPAY ==
--- NOTE | 2025-04-08 15:53 | MHC.AU.HA3 ---
Hearing Instrument Follow-Up- Binaural Date of Visit: 04/08/25 Right Ear: Model Vimal, Color, Serial Number: Elmira Levy0-SP RAEE, #[id number], [employer] Vehicle Dispatcher Repair Warranty: 01/15/2023 Motor Vehicle Dispatcher Loss and Damage Warranty: 01/15/2023 [facility] Service Plan: 01/15/2023 Battery Size: 13 Earmold/Dome/CShell/SlimTip:Microsonic Skeleton with Tube Lock Dispensed By: [facility] Date of Fittin11/06/2019 Left Ear: Model Vimal, Color, Serial Number: Elmira Levy0-SP RAEE, #[id number], [employer] Motor Vehicle Dispatcher Repair Warranty: 01/15/2023 Motor Vehicle Dispatcher Loss and Damage Warranty: 01/15/2023 [facility] Service Plan: 01/15/2023 Battery Size: 13 Earmold/Dome/CShell/SlimTip: Microsonic Skeleton with Tube Lock Dispensed By: [facility] Date of Fittin11/06/2019 Follow-Up Summary: Cirilo reports tubes have become hard, hearing aids in need of cleaning. Also notes poor sound quality for phone calls and TV the past couple months- tinny/distorted. Found tubes hard, debris in microphones. Cleaned hearing aids and ran through dehumidifier. Cleaned earmolds. Replaced tubing and tone hooks. Listening check positive right and left. Cirilo notes improvement. Recommendations: Recommendations: Hearing instrument follow-up or maintenance as needed. Recommendations (Other): Return if sound quality issues persist despite maintenance. Diagnosis Code(s): Primary Diagnosis: H90.3 Bilateral Sensorineural Hearing Loss Signature: Provider: Renan Richards, [facility]
--- OUTSIDE RECORDS SUMMARY | 2025-04-08 16:17 | XMS_ITS | Patient Health Record ---
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 Name Role Phone Mike Youssef MD Primary Care Provider Tima Gonsalves Unavailable [phone] Reason For Referral No Information Medications Medication SIG (Take, Route, Frequency, Duration) Notes Start Date End Date Status hydroCHLOROthiazide 25 mg Active Urea 20 % 1 application to aff ected area as needed Externally Twice a day for 30 days 12/12/2013 Active Enbrel 50 mg Active Diovan 80 mg Active Problems Problem Type SNOMED Code ICD Code Onset Dates Problem Status W/U Status Risk Notes Problem Ulcer of heel (333189507) Ulcer of Heel and Midfoot (707.14) Active confirmed Problem Abscess /Cellulitis (682.7) Active confirmed Problem Disorder of sebaceous gland (4077388) 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.8) Active confirmed Plan Of Treatment Pending Test Test Name Order Date 81814- Debride <25 sq cm 12/12/2013 84435- Debride <25 sq cm 02/01/2014 39178- Debride <25 sq cm 03/12/2014 [id number] SKIN/TISSUE 12/28/2013 Insurance Providers Payer Name Payer Address Payer Phone Subscriber Number Group Number Insured Name Patient Relationship to Insured Coverage Start Date Coverage End Date Medicare National Govt Svcs Inc [address] [place] [address] [id number] Cirilo Watson Self - patient is the insured [employer] [address] [place] [address] [id number] Cirilo Watson Self - patient is the insured Medical (General) History Medical History History ICD Code Arthritis Psoriasis/eczema Measles Mumps Chicken pox High blood pressure Surgical History Surgery Date(Month/Year) gall bladder 1992
== END 2025-04-08 14:21 | disposition home or self-care (01) ==
LOC: HO.HAP 14:20
PROVIDERS: Visit Provider Family Medicine
DX: Z46.1 Encounter for fitting and adjustment of hearing aid (principal); H90.3 Sensorineural hearing loss, bilateral
CPT/HCPCS: 92593

== ENCOUNTER 2025-05-15 16:02 | Outpatient (REF) | payer SELFPAY ==
--- OUTSIDE RECORDS SUMMARY | 2025-05-15 16:05 | XMS_ITS | Patient Health Record ---
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 Name Role Phone Mike Youssef MD Primary Care Provider Tima Gonsalves Unavailable [phone] Reason For Referral No Information Medications Medication SIG (Take, Route, Frequency, Duration) Notes Start Date End Date Status hydroCHLOROthiazide 25 mg Active Urea 20 % 1 application to aff ected area as needed Externally Twice a day; Duration: 30 days 12/12/2013 Active Enbrel 50 mg Active Diovan 80 mg Active Problems Problem Type SNOMED Code ICD Code Onset Dates Problem Status W/U Status Risk Notes Problem Ulcer of heel (796765150) Ulcer of Heel and Midfoot (707.14) Active confirmed Problem Abscess /Cellulitis (682.7) Active confirmed Problem Disorder of sebaceous gland (5297186) 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.8) Active confirmed Plan Of Treatment Pending Test Test Name Order Date 78947- Debride <25 sq cm 12/12/2013 56888- Debride <25 sq cm 02/01/2014 67574- Debride <25 sq cm 03/12/2014 [id number] SKIN/TISSUE 12/28/2013 Insurance Providers Payer Name Payer Address Payer Phone Subscriber Number Group Number Insured Name Patient Relationship to Insured Coverage Start Date Coverage End Date Medicare National Govt Svcs Inc [address] [facility] [place] [address] [phone] [id number] Cirilo Watson Self - patient is the insured [employer] Blue [employer] [address] [place] [address] [id number] Cirilo Watson Self - patient is the insured Medical (General) History Medical History History ICD Code Arthritis Psoriasis/eczema Measles Mumps Chicken pox High blood pressure Surgical History Surgery Date(Month/Year) gall bladder 1992
--- NOTE | 2025-05-15 16:47 | MHC.AU.HA3 ---
Hearing Instrument Follow-Up- Binaural Date of Visit: 05/15/25 Right Ear: Vimal, , Color, Serial Number: Elmira Levy0-SP BTE, #[id number], [employer] Postal Mail Carrier Repair Warranty: 01/15/2023 Postal Mail Carrier Loss and Damage Warranty: 01/15/2023 [facility] Service Plan: 01/15/2023 Battery Size: 13 Earmold/Dome/CShell/SlimTip:Microsonic Skeleton with Tube Lock Dispensed By: [facility] Date of Fittin11/06/2019 Left Ear: Vimal, , Color, Serial Number: Elmira Levy0-SP BTE, #[id number], [employer] Postal Mail Carrier Repair Warranty: 01/15/2023 Postal Mail Carrier Loss and Damage Warranty: 01/15/2023 [facility] Service Plan: 01/15/2023 Battery Size: 13 Earmold/Dome/CShell/SlimTip: Microsonic Skeleton with Tube Lock Dispensed By: [facility] Date of Fittin11/06/2019 Follow-Up Summary: Seen for hearing aid problem, accompanied by . Reports after recent cleaning in March the mold came off the left hearing aid. Cleaned hearing aid and earmold, re-tubed with TRS dri tube. Listening check positive. Cirilo reports bothersome tinny quality to TV and speaker phone has persisted despite maintenance being done in March. He reports it is not distinctly a problem with either hearing aid. Reduced gain slightly for soft mids and highs to help with this. Tested a call and Cirilo reports improvement. Recommended updated audiogram prior to any further adjustments as it has been 2.5 years. No charge today as this issue is related to most recent visit which he was already charged for. Recommendations: Recommendations: Contact PCP for order for hearing test. Diagnosis Code(s): Primary Diagnosis: H90.3 Bilateral Sensorineural Hearing Loss Signature: Provider: Renan Richards, [facility]
== END 2025-05-15 16:03 | disposition home or self-care (01) ==
LOC: HO.HAP 16:02
PROVIDERS: Visit Provider Family Medicine
DX: Z13.89 Encounter for screening for other disorder (principal)

== ENCOUNTER 2025-07-22 10:11 | Outpatient (AMB) | payer MEDICARE, SELFPAY ==
[2025-07-22 10:28] VITALS: BP 128/68; PULSE 78; BMI 31.5
--- NOTE | 2025-07-22 10:28 | A.OFFVIS_ITS ---
Vital Signs 07/22/25 10:28 Height 5 ft 8 in Weight 207 lb 3.752 oz BMI 31.5 BP 128/68 Blood Pressure Location Lt brachial Position Sitting Pulse 78 Pulse Source Pulse Oximeter Intake Visit Reasons: 6m follow up Allergies No Known Allergies Allergy (Mild, Verified 09/30/23 09:23) NONE Medication List - Last Reconciled 07/22/25 by Jerry Barboza MD apixaban (Eliquis) 5 mg PO BID atorvastatin 40 mg PO DAILY carvedilol 12.5 mg PO BID mesalamine ER (Pentasa) 1,000 mg PO BID risankizumab-rzaa (Skyrizi) subcut PER PKG DIR tamsulosin 0.4 mg PO DAILY HPI Comments Details: Cirilo returns for follow-up regarding coronary disease and atrial fibrillation. He states he gets short of breath with activity which is more or less the same as before. Minimal changes. No angina. No other symptoms. Seems to be mostly active without any major limitations. COUNTS INCLUDE 234 BEDS AT THE [facility] Medical History Persistent atrial fibrillation Mixed hyperlipidemia Essential hypertension Atherosclerotic cardiovascular disease Surgical History Status post aorto-coronary artery bypass graft Family History Father Stomach cancer Mother Cancer Brother Prostate cancer Bladder cancer Sister Heart disease Small intestine cancer Other Leukemia Lung cancer Social History Alcohol intake: never Patient Tobacco Use Status: Former Tobacco user service: Yes Current occupational status: retired Review of Systems Const Denies weakness ENT Denies dizziness Card Denies chest pain, Denies chest pain with activity, Denies syncope, Denies rapid heart rate, Denies pedal edema, Denies edema, Denies leg edema, Denies lightheadedness, Denies palpitations, Denies dyspnea, Denies dyspnea on exertion and Denies orthopnea Resp Denies cough, Denies dyspnea and Denies dyspnea on exertion GI Denies hematochezia and Denies change in stool character Musc Denies abnormal gait, Denies muscle cramps, Denies muscle weakness, Denies numbness, Denies radiating pain into limb and Denies tingling Neuro Denies abnormal gait, Denies dizziness, Denies syncope, Denies numbness, Denies tingling and Denies weakness Endo Denies palpitations Physical Exam Vital Signs: Last Vital Signs Pulse 78 07/22/25 10:28 BP 128/68 07/22/25 10:28 BMI result Body Mass Index 31.5 Const General: comfortable and no acute distress Orientation/consciousness: patient oriented x3 HEENT Other: Unremarkable Head: Yes normal to inspection Neck Neck: Yes normal visual inspection Chest Chest palpation & inspection: normal inspection of the chest Resp Auscultation: clear to auscultation bilaterally Cardio Palpation: normal PMI Heart sounds: S1 normal heart sound present, S2 normal heart sound present, no gallops, no murmurs and no rubs GI Palpation (GI): Soft to palpation Back/Spine/Pelvis Other: unremarkable Skin General skin exam: no rashes or lesions noted Neuro General: patient oriented x3 Extrem General: Yes normal to inspection Psych Mental Status: mental status grossly normal Assessment & Plan Assessment & Plan (1) Persistent atrial fibrillation: Code(s): I48.19 - Other persistent atrial fibrillation Category: Medical Plan: Continue beta-blockers and Eliquis. Check labs. Due to concern for shortness of breath, check an echocardiogram. (2) Atherosclerotic cardiovascular disease: Code(s): I25.10 - Atherosclerotic heart disease of [place] coronary artery without angina pectoris Category: Medical Plan: No angina. Most recent LDL 38 mg/dL. May recheck. (3) Status post aorto-coronary artery bypass graft: Code(s): Z95.1 - Presence of aortocoronary bypass graft Category: Surgical Plan: Stable. (4) Essential hypertension: Code(s): I10 - Essential (primary) hypertension Category: Medical Plan: Stable. Orders: Orders CA echo transthoracic complete Today I48.19 - Other persistent atrial fibrill ation Basic Metabolic Panel Today I48.19 - Other persistent atrial fibrillation Lipid Panel Today E78.2 - Mixed hyperlipidemia Liver Panel Today E78.2 - Mixed hyperlipidemia, I25.10 - Atherosclerotic heart disease of [place] coronary artery without angina pectoris, Z95.1 - Presence of aortocoronary bypass graft Coding Level of Care Code Est Pt Level 4 (49511) Complex EM visit Add On G2211 Diagnoses Persistent atrial fibrillation I48.19 Atherosclerotic cardiovascular disease I25.10 Status post aorto-coronary artery bypass graft Z95.1 Essential hypertension I10
--- OUTSIDE RECORDS SUMMARY | 2025-07-22 12:32 | XMS_ITS | Patient Health Record ---
Author Organization [facility] Haley [place] Address 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 Name Role Phone Mike Youssef MD Primary Care Provider Tima Gonsalves Unavailable [phone] Reason For Referral No Information Medications Medication [...] Status Risk Notes Problem Ulcer of heel (111965480) Ulcer of Heel and Midfoot (707.14) Active confirmed Problem Abscess /Cellulitis (682.7) Active confirmed Problem Disorder of sebaceous gland (2714084) 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.8) Active confirmed Plan Of Treatment Pending Test Test Name Order Date 89521- Debride <25 sq cm 12/12/2013 91788- Debride <25 sq cm 02/01/2014 13161- Debride <25 sq cm 03/12/2014 [id number] SKIN/TISSUE 12/28/2013 Insurance Providers Payer Name Payer Address Payer Phone Subscriber Number Group Number Insured Name Patient Relationship to Insured Coverage Start Date Coverage End Date Medicare National Govt Svcs Inc [address] [place] [address] [phone] [id number] Cirilo Watson Self - patient is the insured [employer] [address] [place] [address] [id number] Cirilo Watson Self - patient is the insured Medical (General) History Medical History History ICD Code Arthritis Psoriasis/eczema Measles Mumps Chicken pox High blood pressure Surgical History Surgery Date(Month/Year) gall bladder 1992
== END 2025-07-22 10:49 | disposition home or self-care (01) ==
LOC: HO.HCS 10:12
PROVIDERS: PCP Family Medicine; Visit Provider Internal Medicine
DX: I48.19 Other persistent atrial fibrillation (principal); I25.10 Atherosclerotic heart disease of native coronary artery without angina pectoris; Z95.1 Presence of aortocoronary bypass graft; I10 Essential (primary) hypertension
CPT/HCPCS: 99214; G2211

== ENCOUNTER 2025-07-22 10:11 | Outpatient (REF) | payer MEDICARE, SELFPAY ==
[2025-07-22 12:35] LABS: Alanine Aminotransferase 17 U/L (0-40); Albumin Level 4.4 g/dL (3.5-5.0); Alkaline Phosphatase 112 U/L (39-117); Anion Gap 9 (12-20); Aspartate Amino Transferase 28 U/L (5-37); Blood Urea Nitrogen 12 mg/dL (9-16); Calcium 9.7 mg/dL (8.4-10.2); Carbon Dioxide 29 mmol/L (22-29); Chloride 107 mmol/L (96-108); Cholesterol 109 mg/dL (<200); Estimated Glomerular Filt Rate 56; HDL Cholesterol 36 mg/dL (>40); Potassium 4.7 mmol/L (3.3-5.1); Sodium 140 mmol/L (135-145); Total Protein 6.6 g/dL (6.5-8.0); Triglycerides 97 mg/dL (<150)
== END 2025-07-22 10:12 | disposition home or self-care (01) ==
LOC: HO.LAB 10:11
PROVIDERS: PCP Family Medicine; Visit Provider Internal Medicine
DX: I25.10 Atherosclerotic heart disease of native coronary artery without angina pectoris (principal); I48.19 Other persistent atrial fibrillation; E78.2 Mixed hyperlipidemia; I10 Essential (primary) hypertension; Z95.1 Presence of aortocoronary bypass graft; Z87.891 Personal history of nicotine dependence
CPT/HCPCS: 36415; 80048; 80061; 80076; 99212

== ENCOUNTER → 2025-08-22 13:45 | Outpatient (REF) | payer MEDICARE, SELFPAY ==
--- NOTE | 2025-08-22 13:48 | CA_ITS ---
Transthoracic Echocardiogram Patient (Last, First, Middle): Cirilo Watson C Gender: Male Date of : 1940 Age: 85 Procedure Date: 08/22/2025 Procedure Type: Transthoracic Echocardiogram Location: OP Height: 172.72 cm Weight: 94.8 kg BSA: 2.08 m2 Heart Rate: 69 bpm BP: 138 / 64 mmHg Dentures Lab Technician: SB/RC Referring MD: Jerry Barboza MD Credit Front Office Developer: Volodymyr Jimenez MD Symptoms: I48.19 - Other persistent atrial fibrillation Study Quality: Fair ECG Rhythm: Atrial Fibrillation Conclusions: - 1. Normal LV ejection fraction of 65-70% 2. Calcific aortic and mitral valve changes noted with normal cardiac valvular Dopplers 3. Mildly dilated ascending aorta at 3.8 cm 4. Normal RV systolic pressure 5. No gross pericardial effusion Findings Procedure Information Contrast agent, definity, is being given per protocol without apparent complications. Left Ventricle Normal left ventricular size, thickness, and systolic function. The visually estimated ejection fraction is between 65-70%. Diastolic function is indeterminate on the basis of available data. Right Ventricle The right ventricle was not well visualized. There is moderately decreased right ventricular systolic function. Atria The left atrium was not well visualized. Interatrial shunt cannot be excluded. The right atrium was not well visualized. Aortic Valve There is mild calcification of the aortic valve. There is mild thickening of the aortic valve. There is no aortic valve stenosis. There is no aortic valve regurgitation. Mitral Valve There is moderate anterior and posterior mitral leaflet thickening. There is moderate mitral annular calcification. There is no mitral valve regurgitation. There is no mitral valve stenosis. Pulmonic Valve The pulmonic valve was not well visualized. Tricuspid Valve Likely normal tricuspid valve structure and function. There is trace tricuspid valve regurgitation. The right ventricular systolic pressure is normal. The right ventricular systolic pressure is 28 mmHg. Normal right atrial pressure. There is no evidence of pulmonary hypertension. Great Vessels The pulmonary artery was not well visualized. There is mild dilatation of the ascending aorta measuring 3.80 cm. Small plaque is seen in the sino tubular ridge. Venous The inferior vena cava is mildly dilated and collapses greater than 50% with inspiration. Pericardium/Pleural The pericardium was not well visualized. Prior Study Comparison No significant change compared to prior study dated: 10/21/2020. Measurements 2D Linear Measurements IVSd: 1.06 0.6-0.9/0.6-1.0 cm LVIDd: 4.54 3.9-5.3/4.2-5.9 cm LVIDd Index: 2.18 2.4-3.2/2.2-3.1 cm/m2 LVIDs: 3.24 2.0-3.6 cm LVPWd: 1.02 0.7-1.1 cm LA Diam: 4.00 2.7-3.8/3.0-4.0 cm LAIDs Index: 1.92 1.5-2.3 cm/m2 LV Mass: 204.40 67-162/88-224 g LV Mass Index: 98.27 43-95/49-115 g/m2 LVOT Diam: 2.40 3.0+(-)1.3 cm 2D Systolic Function EF 4C: 67.20 >55% EF 2C: 68.20 >55% EF BiP: 67.50 >55% Mitral Valve MV Pk E: 0.93 MV Decel Time: 178.00 E'Lateral: 8.87 E'Medial: 5.80 E/E' Med: 16.00 E/E' Lat: 10.50 PHT: 52.00 MVA PHT: 4.23 Decel Pacific: 5.28 Aortic Valve AoV Pk Bhavesh: 1.37 AoV Mn Bhavesh: 0.99 AoV VTI: 0.31 AoV Pk Grad: 8.00 Aov Mn Grad: 4.00 ZIGGY Cont.VTI: 2.86 LVOT LVOT Pk Bhavesh: 0.87 LVOT Mn Bhavesh: 0.61 LVOT VTI: 0.20 LVOT Pk Grad: 3.00 LVOT Mn Grad: 2.00 LVOT Diam: 2.40 LVOT Area: 4.52 Diastolic Function MV Pk E: 0.93 E'Medial: 5.80 E/E' Med: 16.00 E' Laterial: 8.87 E/E' Lat: 10.50 Tricuspid Valve TR Pk Bhavesh: 2.48 TR Pk Grad: 25.00 RA Press: 3.00 RVSP: 28.00 Great Vessels Aorta Sinus of Valsalva: 3.60 2.0-3.5 cm Ao Asc: 3.80 2.1-3.4 cm Pulmonary Valve PV Pk Bhavesh: 0.86 Peak PV Grad: 3.00 Updated in Other Vendor System with Status of Final Volodymyr Jimenez MD electronically signed on 08/23/2025 11:45:54 AM with status of Final
--- OUTSIDE RECORDS SUMMARY | 2025-08-22 17:41 | XMS_ITS | Patient Health Record ---
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 Plan Of Treatment Pending Test Test Name Order Date 53637- Debride <25 sq cm 12/12/2013 65035- Debride <25 sq cm 02/01/2014 81973- Debride <25 sq cm 03/12/2014 [id number] SKIN/TISSUE 12/28/2013 Insurance Providers Payer Name Payer Address Payer Phone Subscriber Number Group Number Insured Name Patient Relationship to Insured Coverage Start Date Coverage End Date Medicare National [employer] [address] [place] [address] [id number] Cirilo Watson Self - patient is the insured [employer] [address] [place] [address] [id number] Cirilo Watson Self - patient is the insured Medical (General) History Medical History History ICD Code Arthritis Psoriasis/eczema Measles Mumps Chicken pox High blood pressure Surgical History Surgery Date(Month/Year) gall bladder 1992
== END ==
LOC: HO.CARD 13:45
PROVIDERS: PCP Family Medicine; Visit Provider Internal Medicine
DX: I48.19 Other persistent atrial fibrillation (principal)
CPT/HCPCS: 93306; Q9957

== ENCOUNTER → 2025-08-22 13:48 | Outpatient (BNV) | payer MEDICARE, SELFPAY | PROVIDERS: PCP Family Medicine; Visit Provider Internal Medicine Cardiovascular Disease | DX: I35.8 Other nonrheumatic aortic valve disorders (principal); I34.81 Nonrheumatic mitral (valve) annulus calcification; I77.810 Thoracic aortic ectasia | CPT/HCPCS: 93306 ==